=== PATIENT | female | born 1965 | race Caucasian/White ===

== ENCOUNTER 2022-10-20 09:56 | Outpatient (OUT) | payer OTHER, SELFPAY ==
--- NOTE | 2022-10-20 09:58 | MM_ITS ---
Patient: SONI PERLA Exam Date: 10/20/2022 : 1965 Gender:F Ordering : MIKALA OGDEN Admission #: [id number] Family : Order #: [id number] CLICK HERE TO VIEW EXAM RADIOLOGY REPORT PROCEDURE: MM TOMOSYNTHESIS SCREENING BI COMPARISON: MG MAMM SCREEN 3D AMELIA CAD, 09/25/2020. MG MAMM SCREEN 3D AMELIA CAD, 10/15/2021. INDICATIONS: Screening mammogram Z12.31 Calculator Name NCI Breast Cancer Risk Assessment Tool 5 Year Breast Cancer Risk 1.00% Lifetime Breast Cancer Risk 5.60% Personal Breast Cancer No Personal Ovarian Cancer No Treatments None Family Cancers None LOCATION: The [facility] BREAST COMPOSITION: Scattered areas fibroglandular density. FINDINGS: DIAGNOSTIC CATEGORY 1--NEGATIVE. NO CHANGE FROM COMPARISON ASSESSMENT. Scattered benign-appearing calcifications are present. RIGHT BREAST: No significant suspicious finding. LEFT BREAST: No significant suspicious finding. RECOMMENDATIONS: ROUTINE MAMMOGRAM AND CLINICAL EVALUATION IN 12 MONTHS. PLEASE NOTE: A NORMAL MAMMOGRAM DOES NOT EXCLUDE THE POSSIBILITY OF BREAST CANCER. A CLINICALLY SUSPICIOUS PALPABLE LUMP SHOULD BE BIOPSIED. Dictated by: Delvis Hairston MD on 10/20/2022 at 10:33 Approved by: Delvis Hairston MD on 10/20/2022 at 10:47
== END 2022-10-20 09:57 | disposition home or self-care (01) ==
LOC: MAMMO 09:56
PROVIDERS: PCP Nurse Practitioner Family; Visit Provider Nurse Practitioner Family
DX: Z12.31 Encounter for screening mammogram for malignant neoplasm of breast (principal)
CPT/HCPCS: 77063; 77067

== ENCOUNTER 2023-02-24 19:33 | Emergency (ER) | payer OTHER, SELFPAY ==
[2023-02-24 19:41] VITALS: BP 152/79; PULSE 106; RESP 18; TEMP 36.7; O2SAT 98; BMI 32.4
--- NOTE | 2023-02-24 20:03 | XR_ITS ---
The [address] [address] Patient Name: SONI PERLA MRN: [id number] date: 1965 Sex: F Assigned Patient Location: ER Current Patient Location: ER Accession/Order Number: [id number] Exam Date: 02/24/2023 20:35 Report Date: 02/24/2023 21:24 At the request of: BRAXTON GOODRICH Procedure: XR humerus LT EXAM: XR humerus LT HISTORY: The patient is a 57-year-old female with pain COMPARISON: None. XR/XR humerus LT IMPRESSION: No fractures or cortical discontinuities are seen throughout the length of the left humerus. The AP view demonstrates narrowing of the subacromial space between the acromion and greater tuberosity, suggesting a full-thickness rotator cuff tear. Electronically authenticated by: KADY KIMBALL Date: 02/24/2023 21:24
--- NOTE | 2023-02-24 22:05 | ED.UPPEXIN1 ---
HPI - Extremity Injury (Upper) General Chief Complaint: Extremity Injury, Upper Stated Complaint: Upper Extremity Injury Time Seen by Provider: 02/24/23 22:01 Source: patient Mode of arrival: walk-in Limitations: no limitations History of Present Illness HPI narrative: help move a table a couple of days ago at work and felt a pop of her left arm that was painful. Today noticed blood of the left arm and now presents to be seen . No numbness or weakness. Does have pain with use of the arm. Denies other injuries. Takes ASA but no other blood thinners Related Data Allergies Allergy/AdvReac Type Severity Reaction Status Date / Time No Known Drug Allergies Allergy Verified 02/24/23 19:48 Review of Systems ROS Status of ROS 10 or more systems reviewed and unremarkable except as noted in history and below [facility] Social History Smoking status: Never smoker Exam Constitutional Vital Signs, click to edit/add: Last Vital Signs Temp 98.0 F 02/24/23 19:41 Pulse 106 H 02/24/23 19:41 Resp 18 02/24/23 19:41 BP 152/79 H 02/24/23 19:41 Pulse Ox 98 02/24/23 19:41 O2 Del Method Room Air 02/24/23 19:41 Common normals: no apparent distress, average body habitus, oriented x3 and no limitations HENMT Common normals: normocephalic and head/scalp atraumatic Eye Common normals: PERRL, EOMs intact bilaterally and conjunctivae normal Respiratory Common normals: normal respiratory effort, no retractions, no use of accessory muscles and clear to auscultation bilaterally Cardio Common normals: regular rate, regular rhythm, S1 normal heart sound and S2 normal heart sound Extremity Other: hematoma left mid biceps. Tenderness of superior aspect of the biceps muscle. Neuro Common normals: oriented x3, CN's II-XII intact bilaterally, moves all extremities, no focal motor deficits and no sensory deficits noted Psych Appearance: grossly normal Course Vital Signs Vital signs: Vital Signs Temperature 98.0 F 02/24/23 19:41 Pulse Rate 106 H 02/24/23 19:41 Respiratory Rate 18 02/24/23 19:41 Blood Pressure 152/79 H 02/24/23 19:41 Pulse Oximetry 98 02/24/23 19:41 Oxygen Delivery Method Room Air 02/24/23 19:41 Temperature 98.0 F 02/24/23 19:41 Pulse Rate 106 H 02/24/23 19:41 Respiratory Rate 18 02/24/23 19:41 Blood Pressure 152/79 H 02/24/23 19:41 Pulse Oximetry 98 02/24/23 19:41 Oxygen Delivery Method Room Air 02/24/23 19:41 MDM - Extremity Injury (Upper) MDM Narrative Medical decision making narrative: patient presents clinically with tear of her superior left biceps tendon. Injury occurred yesterday. Discussed with section leader and machine setter orthopedics who states he can see the patient tomorrow in the office Discharge Plan Discharge Chief Complaint: Extremity Injury, Upper Clinical Impression: Biceps muscle tear Patient Disposition: Home, Self-Care Instructions: Tendon Rupture (ED) Additional Instructions: follow up with Dr Pinto tomorrow between 8am-2pm Stand Alone Forms: Portal Instructions Referrals: MIKALA OGDEN [Primary Care Provider] - 1 week
--- NOTE | 2023-02-24 22:31 | PC.NURSE ---
was moving a table at work and felt and heard a pop. There was pain lasting only a few seconds at that time. Yesterday, she noticed bruising at the bicep, and felt pain that has been increasing since that time. Today, the pain is worse and there is increasing weakness in the left arm also.
== END 2023-02-24 22:47 | disposition home or self-care (01) ==
PROVIDERS: Emergency Provider Internal Medicine; PCP Nurse Practitioner Family
DX: S46.212A Strain of muscle, fascia and tendon of other parts of biceps, left arm, initial encounter (principal); X50.9XXA Other and unspecified overexertion or strenuous movements or postures, initial encounter; Z79.82 Long term (current) use of aspirin
CPT/HCPCS: 73060; 99283

== ENCOUNTER 2023-02-25 12:49 | Outpatient (OUT) | payer OTHER, SELFPAY ==
--- NOTE | 2023-02-25 12:57 | MR_ITS ---
The [place] [id number] Patient Name: SONI PERLA MRN: [id number] date: 1965 Sex: F Assigned Patient Location: MRI Current Patient Location: MRI Accession/Order Number: [id number] Exam Date: 02/25/2023 13:00 Report Date: 02/25/2023 14:59 At the request of: NANO SAAVEDRA Procedure: MR elbow LT wo con MR elbow LT wo con, 02/25/2023 1:00 PM EST INDICATION: Left Elbow Pain M25.522 COMPARISON: X-ray of the left humerus dated 02/25/2020 TECHNIQUE: Multiplanar and multisequential MR images of the left elbow were obtained without contrast. FINDINGS: Bone: No acute fracture or dislocation is noted. No osseus lesion is noted. Muscle and tendon: There is low-grade partial tear versus tendinosis of the biceps tendon. There is no abnormality of the biceps retinaculum. Mild tendinosis at origin of the common extensor tendons. No signal abnormality in the remainder of muscles and tendons is noted. Ligaments: The visualized portions of collateral ligaments are unremarkable. Nerves: There is no abnormality of the visualized portion of the ulnar, radial and median nerves. There is trace intra articular joint effusion. Mild subcutaneous edema in the lower aspect of the left arm is noted. MR/MR elbow LT wo con IMPRESSION: Low-grade partial tear versus tendinosis at the insertion of the biceps tendon. Mild tendinosis of common extensor tendon. Otherwise, no significant abnormality is noted. Electronically authenticated by: KENY DE LA ROSA Date: 02/25/2023 14:59
== END 2023-02-25 12:50 | disposition home or self-care (01) ==
LOC: MRI 12:50
PROVIDERS: PCP Nurse Practitioner Family; Visit Provider Nurse Practitioner
DX: M25.522 Pain in left elbow (principal); S46.212A Strain of muscle, fascia and tendon of other parts of biceps, left arm, initial encounter
CPT/HCPCS: 73221

== ENCOUNTER 2023-10-26 09:56 | Outpatient (OUT) | payer OTHER, SELFPAY ==
--- NOTE | 2023-10-26 09:58 | MM_ITS ---
Patient Name: SONI PERLA MR#: [id number] : 1965 Exam Date: 10/26/2023 Ordering Doctor: MIKALA OGDEN RADIOLOGY REPORT PROCEDURE: MM TOMOSYNTHESIS SCREENING BI COMPARISON: MG MAMM SCREEN 3D AMELIA CAD, 10/15/2021. MM TOMOSYNTHESIS SCREENING BI, 10/20/2022. INDICATIONS: Screening Calculator Name NCI Breast Cancer Risk Assessment Tool 5 Year Breast Cancer Risk 1.00% Lifetime Breast Cancer Risk 5.50% Personal Breast Cancer No Personal Ovarian Cancer No Treatments None Family Cancers None LOCATION: The [facility] BREAST COMPOSITION: There are scattered areas of fibroglandular density. FINDINGS: DIAGNOSTIC CATEGORY 1--NEGATIVE. NO CHANGE FROM COMPARISON ASSESSMENT. Scattered benign-appearing calcifications are present. Scattered benign-appearing lymph nodes are present. RIGHT BREAST: No significant suspicious finding. LEFT BREAST: No significant suspicious finding. RECOMMENDATIONS: ROUTINE MAMMOGRAM AND CLINICAL EVALUATION IN 12 MONTHS. PLEASE NOTE: A NORMAL MAMMOGRAM DOES NOT EXCLUDE THE POSSIBILITY OF BREAST CANCER. A CLINICALLY SUSPICIOUS PALPABLE LUMP SHOULD BE BIOPSIED. Dictated by: Delvis Hairston MD on 10/26/2023 at 11:57 Approved by: Delvis Hairston MD on 10/26/2023 at 11:58
== END 2023-10-26 09:57 | disposition home or self-care (01) ==
LOC: MAMMO 09:56
PROVIDERS: PCP Nurse Practitioner Family; Visit Provider Nurse Practitioner Family
DX: Z12.31 Encounter for screening mammogram for malignant neoplasm of breast (principal)
CPT/HCPCS: 77063; 77067

== ENCOUNTER 2024-10-04 07:14 | Outpatient (OUT) | payer OTHER, SELFPAY ==
--- OUTSIDE RECORDS SUMMARY | 2024-10-04 07:16 | XMS_ITS | Patient Health Record ---
Author Organization [facility] Address [address] [place] [address] Care Team Providers Care Front Desk Team Member Name Role Phone Mitchell Pinto Unavailable [phone] Allergies No Known Allergies Reason For Referral No Information Medications Medication SIG (Take, Route, Frequency, Duration) Notes Start Date End Date Status metFORMIN Unknown aspirin Unknown losartan Unknown pravastatin Unknown pioglitazone Unknown amLODIPine Unknown Social History Tobacco Use: Social History Observation Description Date Details (start date - stop date) Never Smoker NA - NA Smoking History Question Answer Notes Smoking Status NonSmoker Problems Problem Type SNOMED Code ICD Code Onset Dates Problem Status W/U Status Risk Notes Problem 22295365 Left elbow pain (M25.522) Active confirmed Problem 587265715 Strain of muscle, fascia and tendon of other parts of biceps, left arm, initial encounter (S46.212A) Active confirmed Problem 705577360 Rupture of left distal biceps tendon, subsequent encounter (S46.212D) Active confirmed Plan Of Treatment Pending Test Test Name Order Date MRI : Elbow W/O Contrast Left - 51524 Work Slip w/Restrictions: Giovanni clay was seen in my office today and may return to work with the following restrictions: 04/22/2023 Work Slip; Off work 03/25/2023 Insurance Providers Payer Name Payer Address Payer Phone Subscriber Number Group Number Insured Name Patient Relationship to Insured Coverage Start Date Coverage End Date [employer] [address] [address] [place] [address] [id number] PARUL PERLA Spouse - patient is the spouse of the insured Medical (General) History Medical History History ICD Code Diabetes High Blood Pressure Anxiety Surgical History Surgery Date(Month/Year) Ganglion cyst Bunion Knee arthroscopy 01/2012 Rotator cuff 01/2011
--- OUTSIDE RECORDS SUMMARY | 2024-10-04 07:16 | XMS_ITS | Clinical Summary ---
Author Organization [facility] Address [address] [place] [address] Care Team Providers Care Graduate Teaching Associate Name Role Phone Jennifer Man DO Primary Care Provider [phone] Encounters Date Type Department Care Team Description 09/19/2024 Orders Only [facility] Admitting [address] [place] [id number] Jennifer Man DO 09/06/2024 9:08 AM EDT - 09/06/2024 11:59 PM EDT Hospital Encounter [facility] [address] [place] [address] Discharge Disposition: Home or Self Care 09/06/2024 9:06 AM EDT - 09/08/2024 11:59 PM EDT Hospital Encounter [facility] Non-Invasive Cardiology [address] [place] [id number] Edema of lower extremity; Dyspnea on exertion Discharge Disposition: Home or Self Care 08/24/2024 Transcribe Orders [facility] [address] [place] [address] Jennifer Man DO Edema of lower extremity (Primary Dx); Dyspnea on exertion 08/24/2024 Transcribe Orders [facility] [address] [place] [address] Jennifer Man DO from Last 3 Months Social History Tobacco Use Types Packs/Day Years Used Date Smoking Tobacco: Never Assessed Comments Unknown Sex and Gender Information Value Date Recorded Sex Assigned at Not on file Legal Sex Female 8:16 AM EST Gender Identity Not on file Sexual Orientation Not on file Last Filed Vital Signs Vital Sign Reading Time Taken Comments Blood Pressure - - Pulse - - Temperature - - Respiratory Rate - - Oxygen Saturation - - Inhaled Oxygen Concentration - - Weight 85.7 kg (189 lb) 09/06/2024 10:17 AM EDT Height 162.6 cm (5' 4.02 ) 09/06/2024 10:17 AM E DT Body Mass Index 32.43 09/06/2024 10:17 AM EDT Plan of Treatment Upcoming Encounters Date Type Department Care Team (Latest Contact Info) Description 11/29/2024 2:15 PM EDT Initial consult [place] Change Management Consultant - [address] [address] Josemanuel Rutledge MD [address] [address] [facility] ECHO RESULTS Health Maintenance Due Date Last Done Comments Depression Screen 1975 DTaP/Tdap/Td vaccine (1 - Tdap) 12/04/1982 Pap smear 12/04/1984 Cervical cancer screen 12/04/1993 HPV (without or with Pap) 12/04/1993 Diabetes screen 12/04/1998 Breast cancer screen 2003 Colonoscopy 12/04/2008 Colorectal Cancer Screen 12/04/2008 FIT/FOBT: Average risk 12/04/2008 Fecal-DNA (Cologuard): Average risk 12/04/2008 Sigmoidoscopy/CT colonography 12/04/2008 Pneumococcal 50+ years Vaccine (1 of 1 - PCV) 12/04/2013 Shingles vaccine (1 of 2) 12/04/2013 COVID-19 Vaccine (1 - 2023- season) 2023 Flu vaccine (Season Ended) 2024 Lipids 02/28/2029 02/29/2024, 08/0 08/2023, 08/04/2022, Additional history exists Respiratory Syncytial Virus (RSV) or age 60 yrs+ (1 - 1-dose 75+ series) 12/04/2038 HIV screen Completed 02/29/2024 Hepatitis C screen Completed 02/29/2024, 02/29/2024 Hepatitis A vaccine Aged Out No longe r eligible based on patient's age to complete this topic Hepatitis B vaccine Aged Out No longe r eligible based on patient's age to complete this topic Hib vaccine Aged Out No longer eligi ble based on patient's age to complete this topic Meningococcal (ACWY) vaccine Aged Out No longer eligible based on patient's age to complete this topic Meningococcal B vaccine Aged Out No l onger eligible based on patient's age to complete this topic Polio vaccine Aged Out No longer elig ible based on patient's age to complete this topic Procedures Procedure Name Priority Date/Time Associated Diagnosis Comments ECHO (TTE) COMPLETE Routine 09/06/2024 1 0:18 AM EDT Edema of lower extremity Dyspnea on exertion BASIC METABOLIC PANEL Routine 09/06/2024 9:52 AM EDT HIV SCREEN Routine 02/29/2024 10:26 AM EST HEPATITIS C ANTIBODY Routine 02/29/2024 10:26 AM EST LIPID PANEL Routine 02/29/2024 10:26 AM EST from Last 3 Months or Most Recently Relevant to Health Maintenance Results * (ABNORMAL) ECHO (TTE) COMPLETE (09/06/2024 10:18 AM EDT) LV EDV A2C 59 mL [facility] CV CPACS LV EDV A4C 71 mL [facility] CV CPACS LV ESV A2C 22 mL [facility] CV CPACS LV ESV A4C 30 mL [facility] CV CPACS IVSd 1.0(A) 0.6 - 0.9 cm [facility] CV CPACS LVIDd 4.6 3.9 - 5.3 cm [facility] CV CPACS LVIDs 2.8 cm [facility] CV [facility]ACS LVOT Mean Gradient 2 mmHg [facility] CV [facility]ACS LVOT VTI 19.6 cm [facility]ACS LVOT Peak Velocity 0.9 m/s [facility] CV [facility]ACS LVOT Peak Gradient 3 mmHg [facility] CV [facility]ACS LVPWd 0.9 0.6 - 0.9 cm [facility]ACS LV E' Lateral Velocity 17.70 cm/s BS CV CPACS LV Ejection Fraction A2C 63 % BS CV CPACS LV Ejection Fraction A4C 58 % BS CV CPACS EF BP 59 55 - 100 % BS CV CPACS LA Minor Elberta 5.1 cm [facility] CV CPACS LA Major Elberta 5.1 cm BS CV CPACS LA Area 2C 17.9 cm2 BS CV CPACS LA Area 4C 17.2 cm2 BS CV CPACS LA Volume MOD A2C 52 22 - 52 mL BS CV CPA CS LA Volume MOD A4C 46 22 - 52 mL BS CV CPA CS LA Volume BP 49 22 - 52 mL BS CV CPACS AV Cusp Mmode 2.0 cm BS CV CPACS AV Mean Gradient 4 mmHg BS CV CPACS AV VTI 29.9 cm BS CV CPACS AV Mean Velocity 1.0 m/s BS CV CPACS AV Peak Velocity 1.4 m/s BS CV CPACS AV Peak Gradient 8 mmHg BS CV CPACS Aortic Sinus Valsalva 3.2 cm BS CV CPACS MV E Wave Deceleration Time 254.0 ms BS CV CPACS MV A Velocity 0.83 m/s BS CV CPACS MV E Velocity 0.89 m/s BS CV CPACS PV Max Velocity 1.1 m/s BS CV CPACS PV Peak Gradient 5 mmHg BS CV CPACS RV Basal Dimension 2.6 cm BS CV CPACS TAPSE 1.8 >=1.7 cm BS CV CPACS TR Max Velocity 2.41 m/s BS CV CPACS TR Peak Gradient 23 mmHg BS CV CPACS Body Surface Area 1.97 m2 BS CV CPACS Fractional Shortening 2D 39 28 - 44 % BS CV [facility]ACS LV ESV Index A4C 16 mL/m2 BS CV CPACS LV EDV Index A4C 37 mL/m2 BS CV CPACS LV ESV Index A2C 12 mL/m2 BS CV CPACS LV EDV Index A2C 31 mL/m2 BS CV CPACS LVIDd Index 2.41 cm/m2 BS CV CPACS LVIDs Index 1.47 cm/m2 BS CV CPACS LV RWT Ratio 0.39 BS CV CPACS LV Mass 2D 148.1 67 - 162 g BS CV CPACS LV Mass 2D Index 77.5 43 - 95 g/m2 BS CV CPACS MV E/A 1.07 BS CV CPACS E/E' Lateral 5.03 BS CV CPACS LA Volume Index BP 26 16 - 34 ml/m2 BS CV CPACS LA Volume Index MOD A2C 27 16 - 34 ml/m2 BS CV CPACS LA Volume Index MOD A4C 24 16 - 34 ml/m2 BS CV CPACS Aortic Sinus Valsalva Index 1.68 cm/m2 BS CV CPACS AV Velocity Ratio 0.64 BS CV CPACS LVOT:AV VTI Index 0.66 BS CV CPACS Est. RA Pressure 3 mmHg BS CV CPACS RVSP 26 mmHg BS CV CPACS EF Physician 60 % BS CV CPACS Anatomical Region Laterality Modality Echocardiography Narrative 09/06/2024 11:14 AM EDT Left Ventricle: Normal left ventricular systolic function with a visually estimated EF of 55 - 60%. Left ventricle size is normal. Normal wall thickness. Normal wall motion. Normal diastolic function. Right Ventricle: Right ventricle size is normal. Normal systolic function. Tricuspid Valve: Mild regurgitation. Normal RVSP. Aorta: Normal sized aortic root. Pericardium: The pericardium is normal. No pericardial effusion. Image quality is adequate. Left Ventricle Normal left ventricular systolic function with a visually estimated EF of 55 - 60%. Left ventricle size is normal. Normal wall thickness. Normal wall motion. Normal diastolic function. Right Ventricle Right ventricle size is normal. Normal systolic function. Left Atrium Left atrium size is normal. Right Atrium Right atrium size is normal. IVC/SVC IVC diameter is normal or and decreases greater than 50% during inspiration; therefore the estimated right atrial pressure is normal (~3 mmHg). IVC size is normal. Mitral Valve Valve structure is normal. No regurgitation. No stenosis noted. Tricuspid Valve Valve structure is normal. Mild regurgitation. No stenosis noted. Normal RVSP. Aortic Valve Valve structure is normal. No regurgitation. No stenosis. Pulmonic Valve The pulmonic valve visualization is suboptimal but appears to be functioning normally. Trace regurgitation. No stenosis noted. Ascending Aorta Normal sized aortic root. Pericardium The pericardium is normal. No pericardial effusion. Study Details Image quality: adequate. No contrast was given. us Jennifer Dewilde DO CV ECHO ORDERABLES Final Resu lt * (ABNORMAL) Basic Metabolic Panel (09/06/2024 9:52 AM EDT) Sodium 136 136 - 145 mmol/L 09/06/2024 9:52 AM [facility] Potassium 4.1 3.7 - 5.3 mmol/L 09/06/2024 9:52 AM [facility] Chloride 98 98 - 107 mmol/L 09/06/2024 9:52 AM [facility] CO2 28 20 - 31 mmol/L 09/06/2024 9:52 AM [facility] Anion Gap 10 9 - 16 mmol/L 09/06/2024 9:52 AM [facility] Glucose 102(H) 74 - 99 mg/dL 09/06/2024 9:52 AM [facility] BUN 13 8 - 23 mg/dL 09/06/2024 9:52 AM [facility] Creatinine 0.6 0.50 - 0.90 mg/dL 09/06/2024 9:52 AM [facility] Est, Glom Filt Rate >90 >60 mL/min/1.7 3m2 09/06/2024 9:52 AM [facility] Comment: These results are not intended for use in patients <18 years of age. eGFR results are calculated without a race factor using the 2020 CKD-EPI equation. Careful clinical correlation is recommended, particularly when comparing to results calculated using previous equations. The CKD-EPI equation is less accurate in patients with extremes of muscle mass, extra-renal metabolism of creatine, excessive creatine ingestion, or following therapy that affects renal tubular secretion. BUN/Creatinine Ratio 22(H) 9 - 20 09/06/2024 9:52 AM [facility] Calcium 9.4 8.6 - 10.4 mg/dL 09/06/2024 9:52 AM [facility] 09/06/2024 9:52 AM EDT 09/06/2024 9:53 AM EDT us Unknown Provider Result CHEMISTRY ORDERABLES Fin al Result Performing Organization Address [facility]/ZIP Co de Phone Number [facility] [address] [place] [address], [facility] [phone] * Hepatitis C Antibody (02/29/2024 10:26 AM EST) Hepatitis C Ab NONREACTIVE NONREACTIVE 02/29/20 10:26 AM EST [facility] Comment: The hepatitis C procedure used in our laboratory is a Chemiluminescent test specific for three recombinant HCV antigens. A negative anti-HCV result indicates that the antibodies to hepatitis C virus are not present at this time. Individuals with reactive anti-HCV should be considered infected and infectious until proven otherwise. Confirmation of all equivocal or reactive results is recommended by ordering HCV RNA by PCR. 02/29/2024 10:2 6 AM EST 02/29/2024 10:27 AM EST us Unknown Provider Result IMMUNOLOGY ORDERABLES Fi nal Result Performing Organization Address [facility] Co de Phone Number [facility] [address] [place] [address], [facility] [phone] [facility] [address] [place] [address], [facility] [phone] * HIV Screen (02/29/2024 10:26 AM EST) HIV Ag/Ab NONREACTIVE NONREACTIVE 02/29/2024 10:26 AM EST [facility] Comment: No laboratory evidence of HIV infection. If acute HIV infection is suspected, consider testing for HIV-1 RNA. 02/29/2024 10:2 6 AM EST 02/29/2024 10:27 AM EST us Unknown Provider Result IMMUNOLOGY ORDERABLES Fi nal Result Performing Organization Address [facility] Co de Phone Number [facility] [address] [place] [address], [facility] [phone] [facility] [address] [place], [place] [id number] [phone] * Lipid Panel (02/29/2024 10:26 AM EST) Cholesterol, Total 134 0 - 199 mg/dL 02/29/2024 10:26 AM [email or web address] Comment: Cholesterol Guidelines: <200 Desirable 200-240 Borderline >240 Undesirable HDL 44 >40 mg/dL 02/29/2024 10:26 AM EST [facility] Comment: HDL Guidelines: <40 Undesirable 40-59 Borderline >59 Desirable LDL Cholesterol 76 0 - 100 mg/dL 02/29/2024 10:26 AM EST [facility] Comment: LDL Guidelines: <100 Desirable 100-129 Near to/above Desirable 130-159 Borderline >159 Undesirable Direct (measured) LDL and calculated LDL are not interchangeable tests. Chol/HDL Ratio 3.0 02/29/2024 10:26 AM [email or web address] Triglycerides 72 <150 mg/dL 02/29/2024 10:26 AM [email or web address] Comment: Triglyceride Guidelines: <150 Desirable 150-199 Borderline 200-499 High >499 Very high Based on AHA Guidelines for fasting triglyceride, January 2012. VLDL 14 1 - 30 mg/dL 02/29/2024 10:26 AM [email or web address] 02/29/2024 10:2 6 AM EST 02/29/2024 10:27 AM EST us Unknown Provider Result CHEMISTRY ORDERABLES Fin al Result [facility] [address] [place] [address], [facility] [phone] [facility] [address] [place], [place] [address] [phone] from Last 3 Months or Most Recently Relevant to Health Maintenance Insurance [employer] [address] [address] Care Teams Graduate Teaching Associate Relationship Specialty Start Date End Date Jennifer Man DO [address] [place] [address] PCP - General Family Medicine 09/05/24
--- OUTSIDE RECORDS SUMMARY | 2024-10-04 07:16 | XMS_ITS | Encounter Summary ---
[facility] Address [address] [place] [address] Care Team Providers Care Paint Maker Name Role Phone Jennifer Man DO Primary Care Provider [phone] Encounter Details Date Type Department Care Team (Late st Contact Info) Description 08/24/2024 Transcribe Orders [facility] Pre Access [address] [place], [place] [phone] Jennifer Man DO [address] [place] [address] Social History Tobacco Use Types Packs/Day Years Used Date Smoking Tobacco: Never Assessed Comments Unknown Sex and Gender Information Value Date Recorded Sex Assigned at Not on file Legal Sex Female 8:16 AM EST Gender Identity Not on file Sexual Orientation Not on file documented as of this encounter Plan of Treatment Upcoming Encounters Date Type Department Care Team (Latest Contact Info) Description 11/29/2024 2:15 PM EDT Initial consult [place] [facility] - [address] [address] [place] [address] [place] [address] [id number] [facility] ECHO RESULTS documented as of this encounter Visit Diagnoses Not on filedocumented in this encounter Care Teams Paint Maker Relationship Specialty Start Date End Date Jennifer Man DO [address] [place] [address] PCP - General Family Medicine 09/05/24 documented as of this encounter
--- OUTSIDE RECORDS SUMMARY | 2024-10-04 07:17 | XMS_ITS | CCD ---
Author Organization [facility] Care Team Providers Care Tip Scourer Name Role Phone Fabiola Kaur Primary Care Provider FABIOLA KAUR Admitting Unavailable FABIOLA KAUR Attending Unavailable SONY, DR LIBBY Funez Consulting Unavailable FABIOLA KAUR Primary Care Unavailable FABIOLA KAUR Consulting Unavailable FABIOLA KAUR Admitting Unavailable FABIOLA KAUR Attending Unavailable WESTDR LIBBY V Consulting Unavailable FABIOLA KAUR Primary Care Unavailable FABIOLA KAUR Consulting Unavailable Betsy Kaurnifer Unavailable Natasha PAN CLEANER - VALIDATION ANALYST, Fabiola Primary Care Provider Natasha PAN CLEANER - VALIDATION ANALYST, Fabiola Primary Care Provider Natasha PAN CLEANER - VALIDATION ANALYST, Fabiola Primary Care Provider DEWIELODIAE, EZIO Referring Unavailable FABIOLA KAUR Primary Care Unavailable FELECIA KAURFER Referring Unavailable FABIOLA KAUR Primary Care Unavailable DEWILDE, EZIO Referring Unavailable DEWILDE, EZIO Primary Care Unavailable DEWILDE, EZIO Referring Unavailable DEWILDE, EZIO Primary Care Unavailable Dewilde DO, Ezio Primary Care Provider Medications Current Medications Medication Drug Class(es) Dates Sig (Normalized) Sig (Original) amLODIPine 2.5 mg oral tablet (16 sources) Dihydropyridine Calcium Channel Galdino Start: 08-25-2023 End: 02-22-2024 take 1 tablet by mouth once daily Amlodipine 2.5 mg tablet Active 0 .ROUTE .COMPLEX 90 February 22, 2024 8:32am TAKE 1 TABLET BY MOUTH EVERY DAY Start: 08-25-2023 take 1 tablet by lety th once daily Amlodipine Active 0 .ROUTE .COMPLEX August 25, 2023 7:44am TAKE 1 TABLET BY MOUTH EVERY DAY Start: 06-15-2023 End: 08-25-2023 take 1 tablet by mouth once daily Amlodipine 2.5 mg tablet Discontinued 2.5 MG PO Daily June 15, 2023 9:09am August 25, 2023 6:44am Start: 06-05-2023 End: 06-15-2023 take 1 tablet by mouth once daily Amlodipine 2.5 mg tablet Discontinued 0 .ROUTE .COMPLEX June 05, 2023 7:03am June 15, 2023 9:09am TAKE 1 TABLET BY MOUTH EVERY DAY Start: 06-05-2023 End: 06-15-2023 take 1 tablet by mouth once daily Amlodipine Discontinued 0 .ROUTE .COMPLEX June 05, 2023 8:03am June 15, 2023 10:09am TAKE 1 TABLET BY MOUTH EVERY DAY take 1 tablet by lety th once daily amLODIPine Besylate 2.5 MG TAKE 1 TABLET BY MOUTH EVERY DAY for 90 Active aspirin 81 mg chewable tablet (11 sources) Platelet Aggregation Inhibitor, Nonsteroidal Anti-inflammatory Drug Start: 11-02-2017 take 1 tablet by mouth once daily Aspirin 81 mg Tablet,Chewable Active 81 MG PO Daily November 01, 2017 11:00pm cholecalciferol 0.05 mg oral capsule (5 sources) Vitamin D Start: 12-22-2023 take 1 capsule by mouth once daily Cholecalciferol (Vitamin D3) 50 mcg (2,000 unit) capsule Active 0 .ROUTE .COMPLEX December 22, 2023 1:27pm TAKE 1 CAPSULE BY MOUTH DAILY Start: 11-17-2023 End: 12-22-2023 take 1 capsule by mouth once daily Cholecalciferol (Vitamin D3) 50 mcg (2,000 unit) capsule Discontinued 50 MCG PO Daily November 16, 2023 11:00pm December 22, 2023 1:28pm Start: 08-07-2022 Vitamin D3 125 MCG (5000 UT) as directed Orally Once a day for 30 days August, Active ferrous sulfate 324 mg delayed release oral tablet (2 sources) Start: 12-22-2023 take 1 tablet by mouth once daily Ferrous Sulfate 324 mg (65 mg iron) tablet,delayed release (DR/EC) Active 0 .ROUTE .COMPLEX December 22, 2023 1:27pm TAKE 1 TABLET BY MOUTH DAILY Start: 11-17-2023 End: 12-22-2023 take 1 tablet by mouth once daily Ferrous Sulfate 324 mg (65 mg iron) tablet,delayed release (DR/EC) Discontinued 324 MG PO Daily November 16, 2023 11:00pm December 22, 2023 1:28pm hydroCHLOROthiazide 12.5 mg / losartan potassium 50 mg oral tablet (20 sources) Thiazide Diuretic, Angiotensin 2 Receptor Galdino Start: 06-15-2023 End: 02-23-2024 take 1 tablet by mouth once daily Losartan-Hydrochlorothiazide 50-12.5 mg tablet Active 1 TAB PO Daily 90 February 23, 2024 9:28am Start: 06-08-2023 End: 06-15-2023 take 1 tablet by mouth once daily Losartan-Hydrochlorothiazide 50-12.5 mg tablet Discontinued 0 .ROUTE .COMPLEX June 08, 2023 7:15am June 15, 2023 9:09am TAKE 1 TABLET BY MOUTH EVERY DAY Start: 06-08-2023 End: 06-08-2023 take 1 tablet by mouth once daily Losartan-Hydrochlorothiazide 50-12.5 mg tablet Discontinued 1 TAB PO Daily 90 June 08, 2023 7:03am June 08, 2023 7:15am FreeTextSig: TAKE 1 TABLET BY MOUTH EVERY DAY; Note: Source Status: Start; Refills: 0; Qty: 90 Tablet; Provider: Natasha Hicks ( ) Start: 11-01-2017 End: 06-05-2023 take 1 tablet by mouth once daily Losartan-Hydrochlorothiazide 100-12.5 mg tablet Discontinued 1 TAB PO Daily October 31, 2017 11:00pm June 05, 2023 7:03am take 1 tablet by lety th once daily Losartan Potassium-HCTZ 50-12.5 MG TAKE 1 TABLET BY MOUTH EVERY DAY for 90 Active metFORMIN hydrochloride 1000 mg oral tablet (17 sources) Biguanide Start: 07-28-2023 End: 01-21-2024 take 1 tablet by mouth twice daily at mealtime Metformin 1,000 mg tablet Active 0 .ROUTE .COMPLEX 180 January 21, 2024 7:34am TAKE 1 TABLET BY MOUTH TWICE DAILY WITH MEALS Start: 07-28-2023 take 1 tablet by lety th twice daily at mealtime Metformin Active 0 .ROUTE .COMPLEX 180 July 28, 2023 7:22am TAKE 1 TABLET BY MOUTH TWICE DAILY WITH MEALS Start: 06-15-2023 End: 07-28-2023 take 1 tablet by mouth twice daily at mealtime Metformin 1,000 mg tablet Discontinued 1000 MG PO Twice daily with meals June 14, 2023 11:00pm July 28, 2023 6:22am FreeTextSig: TAKE 1 TABLET BY MOUTH TWICE DAILY WITH MEALS; Note: Source Status: Start; Refills: 0; Qty: 180 Tablet; Provider: Natasha Hicks ( ) Start: 11-01-2017 End: 06-15-2023 take 1 tablet by mouth twice daily Metformin 500 mg tablet Discontinued 500 MG PO Twice daily October 31, 2017 11:00pm June 15, 2023 8:57am take 1 tablet by lety th twice daily at mealtime metFORMIN HCl 1000 MG TAKE 1 TABLET BY MOUTH TWICE DAILY WITH MEALS for 90 Active pioglitazone 15 mg oral tablet (20 sources) Peroxisome Proliferator Receptor alpha Agonist, Peroxisome Proliferator Receptor gamma Agonist, Thiazolidinedione Start: 01-04-2024 take 1 tablet by mouth once daily Pioglitazone 15 mg tablet Active 15 MG PO Daily 90 January 04, 2024 9:01am Start: 12-22-2023 End: 01-04-2024 take 1 tablet by mouth once daily Pioglitazone 15 mg tablet Discontinued 0 .ROUTE .COMPLEX 90 December 22, 2023 1:27pm January 04, 2024 9:02am TAKE 1 TABLET BY MOUTH EVERY DAY Start: 06-15-2023 End: 12-22-2023 take 1 tablet by mouth once daily Pioglitazone 15 mg tablet Discontinued 15 MG PO Daily June 15, 2023 9:09am December 22, 2023 1:28pm Start: 05-29-2023 End: 06-15-2023 take 1 tablet by mouth once daily Pioglitazone 15 mg tablet Discontinued 0 .ROUTE .COMPLEX 90 May 29, 2023 12:21pm June 15, 2023 9:09am TAKE 1 TABLET BY MOUTH EVERY DAY Start: 05-28-2023 End: 05-29-2023 take 1 tablet by mouth once daily Pioglitazone 15 mg tablet Discontinued 15 MG PO Daily May 28, 2023 10:18am May 29, 2023 12:21pm FreeTextSig: TAKE 1 TABLET BY MOUTH EVERY DAY; Note: Source Status: Start; Refills: 0; Qty: 90 Tablet; Provider: Natasha Hicks ( ) take 1 tablet by lety th once daily Pioglitazone HCl 15 MG TAKE 1 TABLET BY MOUTH EVERY DAY for 90 Active pravastatin sodium 20 mg oral tablet (15 sources) HMG-CoA Reductase Inhibitor Start: 07-28-2023 End: 01-21-2024 take 1 tablet by mouth once daily at bedtime Pravastatin 20 mg tablet Active 0 .ROUTE .COMPLEX January 21, 2024 7:34am TAKE 1 TABLET BY MOUTH EVERY NIGHT AT BEDTIME Start: 11-01-2017 End: 07-28-2023 take 1 tablet by mouth at bedtime Pravastatin 20 mg tablet Discontinued 20 MG PO Bedtime October 31, 2017 11:00pm July 28, 2023 6:22am ReliOn Blood Pressure Monito r - (9 sources) ReliOn Blood Pre ssure Monitor - as directed Active Problems Problem Classification Problem Date Documented Date Episodic/Chronic Deficiency and other anemia (1 source) Iron deficiency anemia; Translations: [Iron deficiency anemia, unspecified] 02-23-2024 Episodic Deficiency and other anemia (1 source) Iron deficiency anemia, unspecified; Translations: [Iron deficiency anemia, unspecified] 02-23-2024 Episodic Diabetes mellitus without complication (20 sources) Type 2 diabetes mellitus without complication; Translations: [Type 2 diabetes mellitus without complications] Onset: 01-14-2021 Resolved: 10-08-2021 Chronic Disorders of lipid metabolism (20 sources) Pure hypercholesterolemia; Translations: [Pure hypercholesterolemia] Onset: 01-14-2021 Resolved: 10-08-2021 Chronic Essential hypertension (20 sources) Essential hypertension; Translations: [Essential (primary) hypertension] Onset: 01-14-2021 Resolved: 10-08-2021 Chronic Fluid and electrolyte disorders (2 sources) Hypo-osmolality and hyponatremia; Translations: [Hypo-osmolality and hyponatremia] Onset: 09-06-2024 Episodic Headache; including migraine (9 sources) Episodic tension-type headache; Translations: [Episodic tension-type headache, not intractable] Chronic Immunizations and screening for infectious disease (4 sources) Patient encounter status; Translations: [Encounter for screening for human immunodeficiency virus [HIV]] 02-23-2024 Episodic Nutritional deficiencies (10 sources) Vitamin D deficiency; Translations: [Vitamin D deficiency, unspecified] Onset: 11-09-2023 Chronic Other lower respiratory disease (1 source) Other forms of dyspnea; Translations: [Other forms of dyspnea] Onset: 09-06-2024 Episodic Other lower respiratory disease (2 sources) Dyspnea on exertion; Translations: [Other forms of dyspnea] 09-06-2024 Episodic Other nutritional; endocrine; and metabolic disorders (17 sources) Body mass index 30+ - obesity; Translations: [Body mass index (BMI) 32.0-32.9, adult] Chronic Other nutritional; endocrine; and metabolic disorders (3 sources) Body mass index (BMI) 32.0-32.9, adult; Translations: [BMI 32.0-32.9,adult Z68.32] Onset: 01-14-2021 Resolved: 01-14-2021 Chronic Other nutritional; endocrine; and metabolic disorders (2 sources) Body mass index (BMI) 31.0-31.9, adult Onset: 06-04-2021 Resolved: 10-08-2021 Chronic Other nutritional; endocrine; and metabolic disorders (1 source) Body mass index (BMI) 33.0-33.9, adult Chronic Other nutritional; endocrine; and metabolic disorders (2 sources) Obesity; Translations: [Obesity, unspecified] 06-15-2023 Chronic Other nutritional; endocrine; and metabolic disorders (1 source) Obesity, unspecified; Translations: [Obesity, unspecified] 11-02-2023 Chronic Other screening for suspected conditions (not mental disorders or infectious disease) (8 sources) Encounter for screening mammogram for malignant neoplasm of breast; Translations: [Encounter for screening for osteoporosis] Onset: 10-08-2021 Resolved: 10-08-2021 Episodic Residual codes; unclassified (5 sources) Asymptomatic menopausal state; Translations: [ASYMPTOMATIC MENOPAUSAL STATE] Onset: 03-17-2022 Episodic Residual codes; unclassified (1 source) Localized edema; Translations: [Localized edema] Onset: 09-06-2024 Episodic Residual codes; unclassified (2 sources) Edema of lower extremity; Translations: [Localized edema] 09-06-2024 Episodic Results Test Name Value Interpretation Reference Range [facility] Basic Metabolic Panelon 06-0 Anion gap [Moles/Vol] 10 mmol/L 9 - 16 mmol/L [facility] Calcium [Mass/Vol] 9.4 mg/dL 8.6 - 10. 4 mg/dL [facility] Chloride [Moles/Vol] 98 mmol/L 98 - 107 mmol/L [facility] CO2 [Moles/Vol] 28 mmol/L 20 - 31 mmol/L [facility] Creatinine [Mass/Vol] 0.6 mg/dL 0.50 - 0.90 mg/dL [facility] Est, Glom Filt Rate - PINF [facility] Comment on above: These results are not intended for use [...] following therapy that affects renal tubular secretion. Glucose [Mass/Vol] 102 mg/dL High 74 - 99 mg/dL [facility] Interpretation and review of laboratory results Abnormal [facility] Potassium [Moles/Vol] 4.1 mmol/L 3.7 - 5.3 mmol/L [facility] Sodium [Moles/Vol] 136 mmol/L 136 - 145 mmol/L [facility] Urea nitrogen [Mass/Vol] 13 mg/dL 8 - 23 mg/dL [facility] Urea nitrogen/Creatinine [Mass ratio] 22 mg/mg High 9 - 20 [facility] Basic Metabolic Profon 09-06 Anion gap [Moles/Vol] 10 mmol/L Normal 9-16 [facility] Comment on above: Performed By: #### F EBC, VD25, URNMAB, B12FOL, LIPR #### [employer] [facility] [place] [address] Utilization Review Coordinator: Hraley Borjas MD #### CDP, TSH, CP #### [facility] [address] [place], [place] [id number] Utilization Review Coordinator: Libby Bah MD BUN/CRE Ratio 22 High 9-20 [facility] Comment on above: Performed By: #### F EBC, VD25, URNMAB, B12FOL, LIPR #### [address] [address] Utilization Review Coordinator: Harley Borjas MD #### CDP, TSH, CP #### [facility] [address] [place], [place] [id number] Utilization Review Coordinator: Libby Bah MD Calcium [Mass/Vol] 9.4 mg/dL Normal 8.6-10.4 [facility] Comment on above: Performed By: #### F EBC, VD25, URNMAB, B12FOL, LIPR #### [address] [address] Utilization Review Coordinator: Harley Borjas MD #### CDP, TSH, CP #### [facility] [address] [place], [place] [id number] Utilization Review Coordinator: Libby Bah MD Chloride [Moles/Vol] 98 mmol/L Normal 98-107 [facility] Comment on above: Performed By: #### F EBC, VD25, URNMAB, B12FOL, LIPR #### [address] [address] Utilization Review Coordinator: Harley Borjas MD #### CDP, TSH, CP #### [facility] [address] [place], [place] [id number] Utilization Review Coordinator: Libby Bah MD CO2 [Moles/Vol] 28 mmol/L Normal 20-31 [facility] Comment on above: Performed By: #### F EBC, VD25, URNMAB, B12FOL, LIPR #### [address] [address] Utilization Review Coordinator: Harley Borjas MD #### SCOOTER TSH, CP #### [facility] [address] [place] [address] Utilization Review Coordinator: Libby Bah MD Creatinine [Mass/Vol] 0.6 mg/dL Normal 0.50-0.90 [facility] Comment on above: Performed By: #### F EBC, VD25, URNMAB, B12FOL, LIPR #### [facility] [address] [place], [place] [id number] Utilization Review Coordinator: Harley Borjas MD #### CARSON HELMS, CP #### [facility] [address] [place] [address] [place] [address] Utilization Review Coordinator: Libby Bah MD GFR/1.73 sq M.predicted among non-blacks MDRD (S/P/Bld) [Vol rate/Area] mL/min/{1.73_m2} Normal >60 [facility] Comment on above: Result Comment: These results are not intended for [...] following therapy that affects renal tubular secretion. Performed By: #### F EBC, VD25, URNMAB, B12FOL, LIPR #### [facility] [employer] [address] [place], [place] [id number] Utilization Review Coordinator: Harley Borjas MD #### SCOOTER, TSH, CP #### [facility] [address] [place] [address] [place] [address] Utilization Review Coordinator: Libby Bah MD Glucose [Mass/Vol] 102 mg/dL High 74-99 [facility] Comment on above: Performed By: #### F EBC, VD25, URNMAB, B12FOL, LIPR #### [facility] [address] [place] [address] Utilization Review Coordinator: Harley Borjas MD #### CDP, TSH, CP #### [address] [place], [place] [id number] Utilization Review Coordinator: Libby Bah MD Potassium [Moles/Vol] 4.1 mmol/L Normal 3.7-5.3 [facility] Comment on above: Performed By: #### F EBC, VD25, URNMAB, B12FOL, LIPR #### [address] [address] Utilization Review Coordinator: Harley Borjas MD #### CDP, TSH, CP #### [address] [place], [place] [id number] Utilization Review Coordinator: Libby Bah MD Sodium [Moles/Vol] 136 mmol/L Normal 136-145 [facility] Comment on above: Performed By: #### F EBC, VD25, URNMAB, B12FOL, LIPR #### [address] [address] Utilization Review Coordinator: Harley Borjas MD #### CDP, TSH, CP #### [address] [place], [place] [id number] Utilization Review Coordinator: Libby Bah MD Urea nitrogen [Mass/Vol] 13 mg/dL Normal 8-23 [facility] Comment on above: Performed By: #### F EBC, VD25, URNMAB, B12FOL, LIPR #### [address] [address] Utilization Review Coordinator: Harley Borjas MD #### CDP, TSH, CP #### [address] [place], [place] [id number] Utilization Review Coordinator: Libby Bah MD Cardiac echo study Procedure Ordered By: Joao Hinkle on 09-06-2024 Aortic Sinus Valsalva 3.2 cm [facility] Work Phone: Aortic Sinus Valsalva Index 1.68 cm/m2 [employer] Work Phone: AV Cusp Mmode 2 cm [employer] Phone: AV Mean Gradient 4 mmHg [facility] [employer] Work Phone: AV Mean Velocity 1 m/s [facility] [employer] Work Phone: AV Peak Gradient 8 mmHg [facility] [employer] Work Phone: AV Peak Velocity 1.4 m/s [facility] [employer] Work Phone: AV Velocity Ratio 0.64 [facility] [employer] Phone: AV VTI 29.9 cm [employer] Phone: Body surface area Derived from formula 1.97 m2 [facility] Work Phone: E/E' Lateral 5.03 [facility] Work Phone: EF BP 59 % 55 - 100 % [facility] Work Phone: EF Physician 60 % [facility] Work Phone: Est. RA Pressure 3 mmHg Bon [employer] Work Phone: Fractional Shortening 2D 39 % 28 - 44 % [facility] Work Phone: Interpretation and review of laboratory results Abnormal [facility] Work Phone: IVSd 1 cm Abnormal 0.6 - 0.9 cm [facility] Work Phone: LA Area 2C 17.9 cm2 [facility] [employer] [facility] Work Phone: LA Area 4C 17.2 cm2 [facility] Work Phone: LA Major Winfred 5.1 cm [facility] Work Phone: LA Minor Winfred 5.1 cm [employer] Phone: LA Volume BP 49 mL 22 - 52 mL [employer] [facility] Work Phone: LA Volume Index BP 26 ml/m2 16 - 34 ml/m2 [employer] Phone: LA Volume Index MOD A2C 27 ml/m2 16 - 34 ml/m2 [facility] Work Phone: LA Volume Index MOD A4C 24 ml/m2 16 - 34 ml/m2 [facility] Work Phone: LA Volume MOD A2C 52 mL 22 - 52 mL [employer] Phone: LA Volume MOD A4C 46 mL 22 - 52 mL [employer] Phone: LV E' Lateral Velocity 17.7 cm/s [employer] Phone: LV EDV A2C 59 mL [facility] Work Phone: LV EDV A4C 71 mL [employer] Phone: LV EDV Index A2C 31 mL/m2 [employer] Work Phone: LV EDV Index A4C 37 mL/m2 [employer] Phone: LV Ejection Fraction A2C 63 % [facility] Work Phone: LV Ejection Fraction A4C 58 % [facility] Work Phone: LV ESV A2C 22 mL [facility] Work Phone: LV ESV A4C 30 mL [employer] Phone: LV ESV Index A2C 12 mL/m2 [employer] Work Phone: LV ESV Index A4C 16 mL/m2 [employer] Work Phone: LV Mass 2D 148.1 g 67 - 162 g [facility] Work Phone: LV Mass 2D Index 77.5 g/m2 43 - 95 g/m2 [employer] Work Phone: LV RWT Ratio 0.39 [employer] Phone: LVIDd 4.6 cm 3.9 - 5.3 cm [employer] Phone: LVIDd Index 2.41 cm/m2 [employer] Work Phone: LVIDs 2.8 cm [employer] Phone: LVIDs Index 1.47 cm/m2 [employer] Phone: LVOT Mean Gradient 2 mmHg [employer] Phone: LVOT Peak Gradient 3 mmHg [employer] Phone: LVOT Peak Velocity 0.9 m/s [employer] Work Phone: LVOT VTI 19.6 cm [employer] Phone: LVOT:AV VTI Index 0.66 [facility] [employer] [facility] [employer] Phone: LVPWd 0.9 cm 0.6 - 0.9 cm [employer] Phone: MV A Velocity 0.83 m/s [facility] [employer] Phone: MV E Velocity 0.89 m/s [facility] Phone: MV E Wave Deceleration Time 254 ms [employer] Phone: MV E/A 1.07 [employer] Phone: PV Max Velocity 1.1 m/s [facility] [employer] Phone: PV Peak Gradient 5 mmHg [facility] [employer] Phone: RV Basal Dimension 2.6 cm [employer] Phone: RVSP 26 mmHg [employer] Work Phone: TAPSE 1.8 cm 1.7 cm [employer] Work Phone: TR Max Velocity 2.41 m/s [employer] Work Phone: TR Peak Gradient 23 mmHg [employer] Work Phone: [employer] Work Phone: Cardiac echo study Procedure on 09-06-2024 Left Ventricle: Normal left ventricular systolic function [...] Image quality: adequate. No contrast was given. [facility] CV CPACS Radiology Study observation (narrative) [employer] HCV RNA,Quant,PCRon 03-01-20 24 HCV RNA,Quant Not detected Normal [facility] Comment on above: Result Comment: INTERPRETIVE INFORMATION: HCV by Quantitative NAAT, Serum or Plasma Normal Range for this assay is Not Detected . The quantitative range of this assay is 15-30,000,000 IU/mL (1.17-7.48 log IU/mL). Lower limit of quantitation(LLoQ) is 15 IU/mL(1.17 log IU/mL). LLoQ values do not apply to diluted specimens. A result of Not Detected does not rule out the presence of inhibitors in the patient specimen or hepatitis C virus RNA concentrations below the level of detection of the test. Care should be taken when interpreting any single viral load determination. This test should not be used for blood donor screening, associated re-entry protocols, or for screening Human Cell, Tissues and Cellular Tissue-Based Products (HCT/P). Performed By: #### F EBC, VD25, URNMAB, B12FOL, LIPR #### [address] [address] Utilization Review Coordinator: Harley Borjas MD #### CDP, TSH, CP #### [address] [place] [address] Utilization Review Coordinator: Libby Bah MD B12/Folate Panelon 4 Cobalamin (Vitamin B12) [Mass/Vol] 238 pg/mL Normal 232-1245 [facility] Comment on above: Performed By: #### F EBC, VD25, URNMAB, B12FOL, LIPR #### [address] [address] Utilization Review Coordinator: Harley Borjas MD #### CDP, TSH, CP #### [address] [place] [address] Utilization Review Coordinator: Libby Bah MD Folic Acid 9.2 ng/mL Normal 4.8-24.2 [facility] Comment on above: Performed By: #### F EBC, VD25, URNMAB, B12FOL, LIPR #### [address] [address] Utilization Review Coordinator: Harley Borjas MD #### CDP, TSH, CP #### [facility] [address] [place] [address] Utilization Review Coordinator: Libby Bah MD CBC with Auto Differentialon 02-29-2024 Basophils (Bld) [#/Vol] 0.06 10*3/uL [facility] Basophils/100 WBC (Bld) 1 % 0 - 2 % [facility] Eosinophils (Bld) [#/Vol] 0.20 10*3/uL [facility] Eosinophils/100 WBC (Bld) 2 % 1 - 4 % [facility] Erythrocyte distribution width (RBC) [Ratio] 15.2 % High 11.8 - 14.4 % [facility] Hematocrit (Bld) [Volume fraction] 37.7 % 36.3 - 47.1 % [facility] Hemoglobin (Bld) [Mass/Vol] 11.9 g/dL 11.9 - 15.1 g/dL [facility] Immature granulocytes (Bld) [#/Vol] 0.07 10*3/uL [facility] Immature granulocytes/100 WBC (Bld) 1 % High 0 [facility] Interpretation and review of laboratory results Abnormal [facility] Lymphocytes/100 WBC (Bld) 23 % Low 24 - 43 % [facility] Lymphocytes/100 WBC (Bld) 2.42 % [facility] MCH (RBC) [Entitic mass] 24.6 pg Low 25.2 - 33.5 pg [facility] MCHC (RBC) [Mass/Vol] 31.6 g/dL 28.4 - 34.8 g/dL [facility] MCV (RBC) [Entitic vol] 78.1 fL Low 82.6 - 102.9 fL [facility] Monocytes/100 WBC (Bld) 7 % 3 - 12 % [facility] Monocytes/100 WBC (Bld) 0.71 % [facility] Neutrophils/100 WBC (Bld) 66 % High 36 - 65 % [facility] Nucleated RBC/100 WBC (Bld) [Ratio] 0.0 % 0.0 per 100 WBC [facility] Platelet mean volume (Bld) [Entitic vol] 9.1 fL 8.1 - 13.5 fL [facility] Platelets (Bld) [#/Vol] 449 10*3/uL [facility] RBC (Bld) [#/Vol] 4.83 10*6/uL 3.95 - 5.1 1 m/uL [facility] Segmented neutrophils/100 WBC (Bld) 6.98 % [facility] WBC other (Bld) [#/Vol] 10.4 [facility] CBC with Diffon 02-29-2024 Abs. Basophil 0.06 k/uL Normal 0.00-0.20 [facility] Comment on above: Performed By: #### V D25, HIVCMB, URNMAB, FEBC, LIPR, B12FOL, AHCV #### [place] [address] Utilization Review Coordinator: Harley Borjas MD #### CDP, CP #### [address] [place] [id number] Utilization Review Coordinator: Libby Bah MD #### HCVQN #### [place] [address] Utilization Review Coordinator: Harley Borjas MD [address] [place] [address] Utilization Review Coordinator: Libby Bah MD Abs.Imm.Granulocyte 0.07 k/uL Normal 0.00-0.30 [facility] Comment on above: Performed By: #### V D25, HIVCMB, URNMAB, FEBC, LIPR, B12FOL, AHCV #### [place] [address] [place] [address] Utilization Review Coordinator: Harley Borjas MD #### CDP, CP #### [address] [place] [phone] Utilization Review Coordinator: Libby Bah MD #### HCVQN #### [address] [address] Utilization Review Coordinator: Harley Borjas MD [address] [place], [place] [phone] Utilization Review Coordinator: Libby Bah MD Abs.Neutrophil (Seg) 6.98 k/uL Normal 1.50-8.10 [facility] Comment on above: Performed By: #### V D25, HIVCMB, URNMAB, FEBC, LIPR, B12FOL, AHCV #### [address] [address] Utilization Review Coordinator: Harley Borjas MD #### CDP, CP #### [address] [place], [place] [phone] Utilization Review Coordinator: Libby Bah MD #### HCVQN #### [address] [address] Utilization Review Coordinator: Harley Borjas MD [address] [place] [address] Utilization Review Coordinator: Libby Bah MD Basophils/100 WBC (Bld) 1 % Normal 0-2 [facility] Comment on above: Performed By: #### V D25, HIVCMB, URNMAB, FEBC, LIPR, B12FOL, AHCV #### [address] [address] Utilization Review Coordinator: Harley Borjas MD #### CDP, CP #### [address] [place], [place] [phone] Utilization Review Coordinator: Libby Bah MD #### HCVQN #### [address] [address] Utilization Review Coordinator: Harley Borjas MD [address] [place] [phone] Utilization Review Coordinator: Libby Bah MD Eosinophils (Bld) [#/Vol] 0.20 10*3/uL Normal 0.00-0.44 [facility] Comment on above: Performed By: #### V D25, HIVCMB, URNMAB, FEBC, LIPR, B12FOL, AHCV #### [place] [address] [place] [address] Utilization Review Coordinator: Harley Borjas MD #### CDP, CP #### [address] [place] [phone] Utilization Review Coordinator: Libby Bah MD #### HCVQN #### [address] [address] Utilization Review Coordinator: Harley Borjas MD [address] [place] [address] Utilization Review Coordinator: Libby Bah MD Eosinophils/100 WBC (Bld) 2 % Normal 1-4 [facility] Comment on above: Performed By: #### V D25, HIVCMB, URNMAB, FEBC, LIPR, B12FOL, AHCV #### [address] [address] Utilization Review Coordinator: Harley Borjas MD #### CDP, CP #### [address] [place] [phone] Utilization Review Coordinator: Libby Bah MD #### HCVQN #### [address] [address] Utilization Review Coordinator: Harley Borjas MD [address] [place] [address] Utilization Review Coordinator: Libby Bah MD Erythrocyte distribution width (RBC) [Ratio] 15.2 % High 11.8-14.4 [facility] Comment on above: Performed By: #### V D25, HIVCMB, URNMAB, FEBC, LIPR, B12FOL, AHCV #### [address] [address] Utilization Review Coordinator: Harley Borjas MD #### CDP, CP #### [address] [place], [place] [phone] Utilization Review Coordinator: Libby Bah MD #### HCVQN #### [address] [address] Utilization Review Coordinator: Harley Borjas MD [address] [place] [phone] Utilization Review Coordinator: Libby Bah MD Hematocrit (Bld) [Volume fraction] 37.7 % Normal 36.3-47.1 [facility] Comment on above: Performed By: #### V D25, HIVCMB, URNMAB, FEBC, LIPR, B12FOL, AHCV #### [address] [address] Utilization Review Coordinator: Harley Borjas MD #### CDP, CP #### [address] [place] [phone] Utilization Review Coordinator: Libby Bah MD #### HCVQN #### [address] [address] Utilization Review Coordinator: Harley Borjas MD [address] [place] [phone] Utilization Review Coordinator: Libby Bah MD Hemoglobin (Bld) [Mass/Vol] 11.9 g/dL Normal 11.9-15.1 [facility] Comment on above: Performed By: #### V D25, HIVCMB, URNMAB, FEBC, LIPR, B12FOL, AHCV #### [address] [address] Utilization Review Coordinator: Harley Borjas MD #### CDP, CP #### [address] [place] [address] Utilization Review Coordinator: Libby Bah MD #### HCVQN #### [address] [address] Utilization Review Coordinator: Harley Borjas MD [address] [place] [address] Utilization Review Coordinator: Libby Bah MD Immature granulocytes/100 WBC (Bld) 1 % High 0 [facility] Comment on above: Performed By: #### V D25, HIVCMB, URNMAB, FEBC, LIPR, B12FOL, AHCV #### [address] [address] Utilization Review Coordinator: Harley Borjas MD #### CDP, CP #### [address] [place] [phone] Utilization Review Coordinator: Libby Bah MD #### HCVQN #### [address] [address] Utilization Review Coordinator: Harley Borjas MD [address] [place] [address] Utilization Review Coordinator: Libby Bah MD Lymphocytes (Bld) [#/Vol] 2.42 10*3/uL Normal 1.10-3.70 [facility] Comment on above: Performed By: #### V D25, HIVCMB, URNMAB, FEBC, LIPR, B12FOL, AHCV #### [address] [address] Utilization Review Coordinator: Harley Borjas MD #### CDP, CP #### [address] [place] [address] Utilization Review Coordinator: Libby Bah MD #### HCVQN #### [address] [address] Utilization Review Coordinator: Harley Borjas MD [address] [place], [place] [phone] Utilization Review Coordinator: Libby Bah MD Lymphocytes/100 WBC (Bld) 23 % Low 24-43 [facility] Comment on above: Performed By: #### V D25, HIVCMB, URNMAB, FEBC, LIPR, B12FOL, AHCV #### [address] [address] Utilization Review Coordinator: Harley Borjas MD #### CDP, CP #### [address] [place], [place] 6000583 Utilization Review Coordinator: Libby Bah MD #### HCVQN #### [address] [address] Utilization Review Coordinator: Harley Borjas MD [address] [place] [phone] Utilization Review Coordinator: Libby Bah MD MCH (RBC) [Entitic mass] 24.6 pg Low 25.2-33.5 [facility] Comment on above: Performed By: #### V D25, HIVCMB, URNMAB, FEBC, LIPR, B12FOL, AHCV #### [facility] [address] [place] [address] Utilization Review Coordinator: Harley Borjas MD #### CDP, CP #### [address] [place], [place] 0402383 Utilization Review Coordinator: Libby Bah MD #### HCVQN #### [address] [address] Utilization Review Coordinator: Harley Borjas MD [address] [place], [place] [phone] Utilization Review Coordinator: Libby Bah MD MCHC (RBC) [Mass/Vol] 31.6 g/dL Normal 28.4-34.8 [facility] Comment on above: Performed By: #### V D25, HIVCMB, URNMAB, FEBC, LIPR, B12FOL, AHCV #### [address] [address] Utilization Review Coordinator: Harley Borjas MD #### CDP, CP #### [address] [place] [phone] Utilization Review Coordinator: Libby Bah MD #### HCVQN #### [address] [address] Utilization Review Coordinator: Harley Borjas MD [address] [place] [address] Utilization Review Coordinator: Libby Bah MD MCV (RBC) [Entitic vol] 78.1 fL Low 82.6-102.9 [facility] Comment on above: Performed By: #### V D25, HIVCMB, URNMAB, FEBC, LIPR, B12FOL, AHCV #### [address] [address] Utilization Review Coordinator: Harley Borjas MD #### CDP, CP #### [address] [place] [phone] Utilization Review Coordinator: Libby Bah MD #### HCVQN #### [address] [address] Utilization Review Coordinator: Harley Borjas MD [address] [place] [phone] Utilization Review Coordinator: Libby Bah MD Monocytes (Bld) [#/Vol] 0.71 10*3/uL Normal 0.10-1.20 [facility] Comment on above: Performed By: #### V D25, HIVCMB, URNMAB, FEBC, LIPR, B12FOL, AHCV #### [address] [address] Utilization Review Coordinator: Harley Borjas MD #### CDP, CP #### [address] [place] [address] Utilization Review Coordinator: Libby Bah MD #### HCVQN #### [address] [address] Utilization Review Coordinator: Harley Borjas MD [address] [place] [address] Utilization Review Coordinator: Libby Bah MD Monocytes/100 WBC (Bld) 7 % Normal 3-12 [facility] Comment on above: Performed By: #### V D25, HIVCMB, URNMAB, FEBC, LIPR, B12FOL, AHCV #### [address] [address] Utilization Review Coordinator: Harley Borjas MD #### CDP, CP #### [address] [place] [address] Utilization Review Coordinator: Libby Bah MD #### HCVQN #### [address] [address] Utilization Review Coordinator: Harley Borjas MD [address] [place] [address] Utilization Review Coordinator: Libby Bah MD Neutrophil (Seg) 66 % High 36-65 [facility] Comment on above: Performed By: #### V D25, HIVCMB, URNMAB, FEBC, LIPR, B12FOL, AHCV #### [address] [address] Utilization Review Coordinator: Harley Borjas MD #### CDP, CP #### [address] [place] [address] Utilization Review Coordinator: Libby Bah MD #### HCVQN #### [facility] [address] [place] [address] Utilization Review Coordinator: Harley Borjas MD [address] [place] [address] Utilization Review Coordinator: Libby Bah MD NRBC Automated 0.0 per 100 WBC Normal 0.0 [facility] Comment on above: Performed By: #### V D25, HIVCMB, URNMAB, FEBC, LIPR, B12FOL, AHCV #### [address] [address] Utilization Review Coordinator: Harley Borjas MD #### CDP, CP #### [address] [place], [place] 1506083 Utilization Review Coordinator: Libby Bah MD #### HCVQN #### [address] [address] Utilization Review Coordinator: Harley Borjas MD [address] [place] [phone] Utilization Review Coordinator: Libby Bah MD Platelet mean volume (Bld) [Entitic vol] 9.1 fL Normal 8.1-13.5 [facility] Comment on above: Performed By: #### V D25, HIVCMB, URNMAB, FEBC, LIPR, B12FOL, AHCV #### [address] [address] Utilization Review Coordinator: Harley Borjas MD #### CDP, CP #### [address] [place], [place] [phone] Utilization Review Coordinator: Libby Bah MD #### HCVQN #### [address] [address] Utilization Review Coordinator: Harley Borjas MD [address] [place] [address] Utilization Review Coordinator: Libby Bah MD Platelets (Bld) [#/Vol] 449 10*3/uL Normal 138-453 [facility] Comment on above: Performed By: #### V D25, HIVCMB, URNMAB, FEBC, LIPR, B12FOL, AHCV #### [facility] [address] [place] [address] Utilization Review Coordinator: Harley Borjas MD #### CDP, CP #### [address] [place] [address] Utilization Review Coordinator: Libby Bah MD #### HCVQN #### [address] [address] Utilization Review Coordinator: Harley Borjas MD [address] [place] [phone] Utilization Review Coordinator: Libby Bah MD RBC (Bld) [#/Vol] 4.83 10*6/uL Normal 3.95-5.11 [facility] Comment on above: Performed By: #### V D25, HIVCMB, URNMAB, FEBC, LIPR, B12FOL, AHCV #### [facility] [address] [place] [address] Utilization Review Coordinator: Harley Borjas MD #### CDP, CP #### [address] [place] [address] Utilization Review Coordinator: Libby Bah MD #### HCVQN #### [address] [address] Utilization Review Coordinator: Harley Borjas MD [address] [place] [address] Utilization Review Coordinator: Libby Bah MD WBC (Bld) [#/Vol] 10.4 10*3/uL Normal 3.5-11.3 [facility] Comment on above: Performed By: #### V D25, HIVCMB, URNMAB, FEBC, LIPR, B12FOL, AHCV #### [address] [address] Utilization Review Coordinator: Harley Borjas MD #### CDP, CP #### [address] [place], [place] [phone] Utilization Review Coordinator: Libby Bah MD #### HCVQN #### [address] [address] Utilization Review Coordinator: Harley Borjas MD [address] [place], [place] 6697783 Utilization Review Coordinator: Libby Bah MD Comp Metabolic Profon 2023 Albumin [Mass/Vol] 4.5 g/dL Normal 3.5-5.2 [facility] Comment on above: Performed By: #### V D25, HIVCMB, URNMAB, FEBC, LIPR, B12FOL, AHCV #### [address] [address] Utilization Review Coordinator: Harley Borjas MD #### CDP, CP #### [address] [place], [place] [phone] Utilization Review Coordinator: Libby Bah MD #### HCVQN #### [address] [address] Utilization Review Coordinator: Harley Borjas MD [address] [place] [address] Utilization Review Coordinator: Libby Bah MD Albumin/Glob Ratio 1.3 Normal 1.0-2.5 [facility] Comment on above: Performed By: #### V D25, HIVCMB, URNMAB, FEBC, LIPR, B12FOL, AHCV #### [address] [address] Utilization Review Coordinator: Harley Borjas MD #### CDP, CP #### [address] [place] [address] Utilization Review Coordinator: Libby Bah MD #### HCVQN #### [address] [address] Utilization Review Coordinator: Harley Borjas MD [address] [place], [place] 0497183 Utilization Review Coordinator: Libby Bah MD Alkaline Phos 92 U/L Normal 35-104 [facility] Comment on above: Performed By: #### V D25, HIVCMB, URNMAB, FEBC, LIPR, B12FOL, AHCV #### [address] [address] Utilization Review Coordinator: Harley Borjas MD #### CDP, CP #### [address] [place] [address] Utilization Review Coordinator: Libby Bah MD #### HCVQN #### [address] [address] Utilization Review Coordinator: Harley Borjas MD [address] [place] [address] Utilization Review Coordinator: Libby Bah MD ALT [Catalytic activity/Vol] 22 U/L Normal 10-35 [facility] Comment on above: Performed By: #### V D25, HIVCMB, URNMAB, FEBC, LIPR, B12FOL, AHCV #### [facility] [address] [place] [address] Utilization Review Coordinator: Harley Borjas MD #### CDP, CP #### [address] [place] [address] Utilization Review Coordinator: Libby aBh MD #### HCVQN #### [address] [place] [address] Utilization Review Coordinator: Harley Borjas MD [address] [place], [place] 2256983 Utilization Review Coordinator: Libby Bah MD Anion gap [Moles/Vol] 12 mmol/L Normal 9-16 [facility] Comment on above: Performed By: #### V D25, HIVCMB, URNMAB, FEBC, LIPR, B12FOL, AHCV #### [facility] [address] [place] [address] Utilization Review Coordinator: Harley Borjas MD #### CDP, CP #### [address] [place], [place] [id number] Utilization Review Coordinator: Libby Bah MD #### HCVQN #### [address] [address] Utilization Review Coordinator: Harley Borjas MD [address] [place] [phone] Utilization Review Coordinator: Libby Bah MD AST [Catalytic activity/Vol] 20 U/L Normal 10-35 [facility] Comment on above: Performed By: #### V D25, HIVCMB, URNMAB, FEBC, LIPR, B12FOL, AHCV #### [facility] [address] [place] [address] Utilization Review Coordinator: Harley Borjas MD #### CDP, CP #### [address] [place], [place] 6798383 Utilization Review Coordinator: Libby Bah MD #### HCVQN #### [address] [address] Utilization Review Coordinator: Harley Borjas MD [address] [place], [place] 5731283 Utilization Review Coordinator: Libby Bah MD Bilirubin [Mass/Vol] 0.4 mg/dL Normal 0.00-1.20 [facility] Comment on above: Performed By: #### V D25, HIVCMB, URNMAB, FEBC, LIPR, B12FOL, AHCV #### [address] [address] Utilization Review Coordinator: Harley Borjas MD #### CDP, CP #### [address] [place] [address] Utilization Review Coordinator: Libby Bah MD #### HCVQN #### [address] [address] Utilization Review Coordinator: Harley Borjas MD [address] [place] [address] Utilization Review Coordinator: Libby Bah MD BUN/CRE Ratio 23 High 9-20 [facility] Comment on above: Performed By: #### V D25, HIVCMB, URNMAB, FEBC, LIPR, B12FOL, AHCV #### [address] [address] Utilization Review Coordinator: Harley Borjas MD #### CDP, CP #### [address] [place] [address] Utilization Review Coordinator: Libby Bah MD #### HCVQN #### [address] [address] Utilization Review Coordinator: Harley Borjas MD [address] [place] [address] Utilization Review Coordinator: Libby Bah MD Calcium [Mass/Vol] 9.6 mg/dL Normal 8.6-10.4 [facility] Comment on above: Performed By: #### V D25, HIVCMB, URNMAB, FEBC, LIPR, B12FOL, AHCV #### [address] [address] Utilization Review Coordinator: Harley Borjas MD #### CDP, CP #### [address] [place] [address] Utilization Review Coordinator: Libby Bah MD #### HCVQN #### [address] [address] Utilization Review Coordinator: Harley Borjas MD [address] [place] [address] Utilization Review Coordinator: Libby Bah MD Chloride [Moles/Vol] 97 mmol/L Low 98-107 [facility] Comment on above: Performed By: #### V D25, HIVCMB, URNMAB, FEBC, LIPR, B12FOL, AHCV #### [address] [address] Utilization Review Coordinator: Harley Borjas MD #### CDP, CP #### [address] [place] [address] Utilization Review Coordinator: Libby Bah MD #### HCVQN #### [address] [address] Utilization Review Coordinator: Harley Borjas MD [address] [place] [address] Utilization Review Coordinator: Libby Bah MD CO2 [Moles/Vol] 24 mmol/L Normal 20-31 [facility] Comment on above: Performed By: #### V D25, HIVCMB, URNMAB, FEBC, LIPR, B12FOL, AHCV #### [place] [address] [place] [address] Utilization Review Coordinator: Harley Borjas MD #### CDP, CP #### [address] [place], [place] [phone] Utilization Review Coordinator: Libby Bah MD #### HCVQN #### [address] [address] Utilization Review Coordinator: Harley Borjas MD [facility] [address] [place] [address] [place] [place], [place] [phone] Utilization Review Coordinator: Libby Bah MD Creatinine [Mass/Vol] 0.6 mg/dL Normal 0.50-0.90 [facility] Comment on above: Performed By: #### V D25, HIVCMB, URNMAB, FEBC, LIPR, B12FOL, AHCV #### [address] [address] Utilization Review Coordinator: Harley Borjas MD #### CDP, CP #### [address] [place], [place] [id number] Utilization Review Coordinator: Libby Bah MD #### HCVQN #### [address] [address] Utilization Review Coordinator: Harley Borjas MD [address] [place], [place] 5626183 Utilization Review Coordinator: Libby Bah MD GFR/1.73 sq M.predicted among non-blacks MDRD (S/P/Bld) [Vol rate/Area] mL/min/{1.73_m2} Normal >60 [facility] Comment on above: Result Comment: These results are not intended for [...] following therapy that affects renal tubular secretion. Performed By: #### V D25, HIVCMB, URNMAB, FEBC, LIPR, B12FOL, AHCV #### [facility] [address] [place] [address] Utilization Review Coordinator: Harley Borjas MD #### CDP, CP #### [address] [place] [address] Utilization Review Coordinator: Libby Bah MD #### HCVQN #### [facility] [address] [place] [address] Utilization Review Coordinator: Harley Borjas MD [address] [place] [address] Utilization Review Coordinator: Libby Bah MD Glucose [Mass/Vol] 100 mg/dL High 74-99 [facility] Comment on above: Performed By: #### V D25, HIVCMB, URNMAB, FEBC, LIPR, B12FOL, AHCV #### [facility] [address] [place] [address] Utilization Review Coordinator: Harley Borjas MD #### CDP, CP #### [address] [place] [address] Utilization Review Coordinator: Libby Bah MD #### HCVQN #### [address] [address] Utilization Review Coordinator: Harley Borjas MD [address] [place] [address] Utilization Review Coordinator: Libby Bah MD Potassium [Moles/Vol] 4.0 mmol/L Normal 3.7-5.3 [facility] Comment on above: Performed By: #### V D25, HIVCMB, URNMAB, FEBC, LIPR, B12FOL, AHCV #### [facility] [address] [place] [address] Utilization Review Coordinator: Harley Borjas MD #### CDP, CP #### [address] [place] [address] Utilization Review Coordinator: Libby Bah MD #### HCVQN #### [address] [address] Utilization Review Coordinator: Harley Borjas MD [address] [place], [place] 7446983 Utilization Review Coordinator: Libby Bah MD Protein [Mass/Vol] 7.9 g/dL Normal 6.6-8.7 [facility] Comment on above: Performed By: #### V D25, HIVCMB, URNMAB, FEBC, LIPR, B12FOL, AHCV #### [facility] [address] [place] [address] Utilization Review Coordinator: Harley Borjas MD #### CDP, CP #### [address] [place], [place] 1915383 Utilization Review Coordinator: Libby Bah MD #### HCVQN #### [address] [address] Utilization Review Coordinator: Harley Borjas MD [address] [place] [phone] Utilization Review Coordinator: Libby Bah MD Sodium [Moles/Vol] 133 mmol/L Low 136-145 [facility] Comment on above: Performed By: #### V D25, HIVCMB, URNMAB, FEBC, LIPR, B12FOL, AHCV #### [facility] [address] [place] [address] Utilization Review Coordinator: Harley Borjas MD #### CDP, CP #### [address] [place], [place] [phone] Utilization Review Coordinator: Libby Bah MD #### HCVQN #### [address] [address] Utilization Review Coordinator: Harley Borjas MD [address] [place], [place] [phone] Utilization Review Coordinator: Libby Bah MD Urea nitrogen [Mass/Vol] 14 mg/dL Normal 8-23 [facility] Comment on above: Performed By: #### V D25, HIVCMB, URNMAB, FEBC, LIPR, B12FOL, AHCV #### [facility] [address] [place], [place] [phone] Utilization Review Coordinator: Harley Borjas MD #### CDP, CP #### [facility] [address] [place] [address] Utilization Review Coordinator: Libby Bah MD #### HCVQN #### [facility] [address] [place], [place] [id number] Utilization Review Coordinator: Harley Borjas MD [facility] [address] [place] [address] Utilization Review Coordinator: Libby Bah MD Comprehensive Metabolic Pane [facility] 02-29-2024 Albumin [Mass/Vol] 4.5 g/dL 3.5 - 5.2 g/dL [facility] Albumin/Globulin [Mass ratio] 1.3 {ratio} 1.0 - 2.5 [facility] ALP [Catalytic activity/Vol] 92 U/L 35 - 104 U/L [facility] ALT [Catalytic activity/Vol] 22 U/L 10 - 35 U/L [facility] Anion gap [Moles/Vol] 12 mmol/L 9 - 16 mmol/L [facility] AST [Catalytic activity/Vol] 20 U/L 10 - 35 U/L [facility] Bilirubin [Mass/Vol] 0.4 mg/dL 0.00 - 1.20 mg/dL [facility] Calcium [Mass/Vol] 9.6 mg/dL 8.6 - 10. 4 mg/dL [facility] Chloride [Moles/Vol] 97 mmol/L Low 98 - 107 mmol/L [facility] CO2 [Moles/Vol] 24 mmol/L 20 - 31 mmol/L [facility] Creatinine [Mass/Vol] 0.6 mg/dL 0.50 - 0.90 mg/dL [facility] Est, Glom Filt Rate - PINF [facility] Comment on above: These results are not intended for use [...] following therapy that affects renal tubular secretion. Glucose [Mass/Vol] 100 mg/dL High 74 - 99 mg/dL [facility] Interpretation and review of laboratory results Abnormal [facility] Potassium [Moles/Vol] 4.0 mmol/L 3.7 - 5.3 mmol/L [facility] Protein [Mass/Vol] 7.9 g/dL 6.6 - 8.7 g/dL [facility] Sodium [Moles/Vol] 133 mmol/L Low 136 - 145 mmol/L [facility] Urea nitrogen [Mass/Vol] 14 mg/dL 8 - 23 mg/dL [facility] Urea nitrogen/Creatinine [Mass ratio] 23 mg/mg High 9 - 20 [facility] HCV RNA,Quant,PCRon 02-29-20 24 Source .PLASMA Normal [facility] Comment on above: Performed By: #### F EBC, VD25, URNMAB, B12FOL, LIPR #### [facility] [employer] [address] [place] [address] Utilization Review Coordinator: Harley Borjas MD #### CDP, TSH, CP #### [facility] [address] [place] [address] Utilization Review Coordinator: Libby Bah MD HIV Ag/Abon 02-29-2024 HIV Ag/Ab Non-Reactive Normal [facility] Comment on above: Result Comment: No l aboratory evidence of HIV infection. If acute HIV infection is suspected, consider testing for HIV-1 RNA. Performed By: #### F EBC, VD25, URNMAB, B12FOL, LIPR #### [facility] [employer] [address] [place], [place] [id number] Utilization Review Coordinator: Harley Borjas MD #### SCOOTER TSH, CP #### [facility] [address] [place] [address] Utilization Review Coordinator: Libby Bah MD HIV Screenon 02-29-2024 HIV 1+2 Ab+HIV1 p24 Ag IA Ql Non-Reactive NONREACTIVE [facility] Comment on above: No laboratory eviden ce of HIV infection. If acute HIV infection is suspected, consider testing for HIV-1 RNA. [facility] Hep C Abon 02-29-2024 Hep C Ab Non-Reactive Normal NR [facility] Comment on above: Result Comment: The hepatitis C procedure used in [...] recommended by ordering HCV RNA by PCR. Performed By: #### F EBC, VD25, URNMAB, B12FOL, LIPR #### [facility], [place] [id number] Utilization Review Coordinator: Harley Borjas MD #### CARSON HELMS, CP #### [facility] [address] [place] [address] Utilization Review Coordinator: Libby Bah MD Hepatitis C Antibodyon 02-28 HCV Ab IA Ql Non-Reactive NONREACTIVE [facility] Comment on above: The hepatitis C procedure used in our [...] recommended by ordering HCV RNA by PCR. Iron Binding Cap.on 02-29-20 24 % Fe Saturation 10 % Low 20-55 [facility] Comment on above: Performed By: #### F EBC, VD25, URNMAB, B12FOL, LIPR #### [address] [address] Utilization Review Coordinator: Harley Borjas MD #### CDP, TSH, CP #### [address] [place], [place] [phone] Utilization Review Coordinator: Libby Bah MD Iron [Mass/Vol] 41 ug/dL Normal 37-145 [facility] Comment on above: Performed By: #### F EBC, VD25, URNMAB, B12FOL, LIPR #### [address] [address] Utilization Review Coordinator: Harley Borjas MD #### CDP, TSH, CP #### [address] [place], [place] [id number] Utilization Review Coordinator: Libby Bah MD Total Fe Binding Cap 405 ug/dL Normal 250-450 [facility] Comment on above: Performed By: #### F EBC, VD25, URNMAB, B12FOL, LIPR #### [address] [address] Utilization Review Coordinator: Harley Borjas MD #### CDP, TSH, CP #### [address] [place], [place] [phone] Utilization Review Coordinator: Libby Bah MD Unbound Fe Bind Cap 364 ug/dL High 112-347 [facility] Comment on above: Performed By: #### F EBC, VD25, URNMAB, B12FOL, LIPR #### [address] [address] Utilization Review Coordinator: Harley Borjas MD #### CDP, TSH, CP #### [facility] [address] [place] [address] Utilization Review Coordinator: Libby Bah MD Iron and TIBCon 02-29-2024 Iron [Mass/Vol] 41 ug/dL 37 - 145 ug/dL [facility] Iron binding capacity [Mass/Vol] 405 ug/dL 250 - 450 ug/dL [facility] Iron saturation [Mass fraction] 10 % Low 20 - 55 % [facility] UIBC 364 ug/dL High 112 - 347 ug/dL [facility] Lipid Panelon 02-29-2024 Cholesterol [Mass/Vol] 134 mg/dL 0 - 199 mg/dL [facility] Comment on above: Cholesterol Guidelines: <200 Desirable 200-240 Borderline >240 Undesirable Cholesterol in HDL [Mass/Vol] 44 mg/dL 40 - PINF mg/dL [facility] Comment on above: HDL Guidelines: <40 Undesirable 40-59 Borderline >59 Desirable Cholesterol in LDL [Mass/Vol] 76 mg/dL 0 - 100 mg/dL [facility] Comment on above: LDL Guidelines: <100 Desirable 100-129 Near to/above Desirable 130-159 Borderline >159 Undesirable Direct (measured) LDL and calculated LDL are not interchangeable tests. Cholesterol in VLDL [Mass/Vol] 14 mg/dL 1 - 30 mg/dL [facility] Cholesterol.total/Ch olesterol in HDL [Mass ratio] 3.0 {ratio} [facility] Triglyceride [Mass/Vol] 72 mg/dL NINF - 150 mg/dL [facility] Comment on above: Triglyceride Guidelines: <150 Desirable 150-199 Borderline 200-499 High >499 Very high Based on AHA Guidelines for fasting triglyceride, January 2012. Lipid Profileon 02-29-2024 Cholesterol [Mass/Vol] 134 mg/dL Normal 0-199 [facility] Comment on above: Result Comment: Cholesterol Guidelines: <200 Desirable 200-240 Borderline >240 Undesirable Performed By: #### F EBC, VD25, URNMAB, B12FOL, LIPR #### [facility] [employer] [address] [place] [address] Utilization Review Coordinator: Harley Borjas MD #### CDP, TSH, CP #### [facility] [address] [place] [address] Utilization Review Coordinator: Libby Bah MD Cholesterol in HDL [Mass/Vol] 44 mg/dL Normal >40 [facility] Comment on above: Result Comment: HDL Guidelines: <40 Undesirable 40-59 Borderline >59 Desirable Performed By: #### F EBC, VD25, URNMAB, B12FOL, LIPR #### [address] [address] Utilization Review Coordinator: Harley Borajs MD #### CDP, TSH, CP #### [facility] [address] [place] [address] [place] [phone] Utilization Review Coordinator: Libby Bah MD Cholesterol in LDL [Mass/Vol] 76 mg/dL Normal 0-100 [facility] Comment on above: Result Comment: LDL Guidelines: <100 Desirable 100-129 Near to/above Desirable 130-159 Borderline >159 Undesirable Direct (measured) LDL and calculated LDL are not interchangeable tests. Performed By: #### F EBC, VD25, URNMAB, B12FOL, LIPR #### [address] [address] Utilization Review Coordinator: Harley Borjas MD #### CDP, TSH, CP #### [address] [place] [phone] Utilization Review Coordinator: Libby Bah MD Cholesterol in VLDL [Mass/Vol] 14 mg/dL Normal 1-30 [facility] Comment on above: Performed By: #### F EBC, VD25, URNMAB, B12FOL, LIPR #### [address] [address] Utilization Review Coordinator: Harley Borjas MD #### CDP, TSH, CP #### [facility] [address] [place] [address] [place] [phone] Utilization Review Coordinator: Libby Bah MD Cholesterol.total/Ch olesterol in HDL [Mass ratio] 3.0 {ratio} Normal [facility] Comment on above: Performed By: #### F EBC, VD25, URNMAB, B12FOL, LIPR #### [address] [address] Utilization Review Coordinator: Harley Borjas MD #### CDP, TSH, CP #### [address] [place] [address] Utilization Review Coordinator: Libby Bah MD Triglyceride [Mass/Vol] 72 mg/dL Normal <150 [facility] Comment on above: Result Comment: Triglyceride Guidelines: <150 Desirable 150-199 Borderline 200-499 High >499 Very high Based on AHA Guidelines for fasting triglyceride, January 2012. Performed By: #### F EBC, VD25, URNMAB, B12FOL, LIPR #### [address] [address] Utilization Review Coordinator: Harley Borjas MD #### CDP, TSH, CP #### [address] [place] [address] Utilization Review Coordinator: Libby Bah MD Microalb.,Random Uron 2023 Creatinine [Mass/Vol] 40.4 mg/dL Normal 28.0-217.0 [facility] Comment on above: Result Comment: Refe rence range defined for 1st morning urine Performed By: #### F EBC, VD25, URNMAB, B12FOL, LIPR #### [address] [address] Utilization Review Coordinator: Harley Borjas MD #### CDP, TSH, CP #### [facility] [address] [place] [address] [place] [address] Utilization Review Coordinator: Libby Bah MD Microalb/Creat Ratio Can not be calculated Normal 0.0-25.0 [facility] Comment on above: Performed By: #### F EBC, VD25, URNMAB, B12FOL, LIPR #### [address] [address] Utilization Review Coordinator: Harley Borjas MD #### CDP, TSH, CP #### [facility] [address] [place] [address] Utilization Review Coordinator: Libby Bah MD Microalbumin conc. <12 Normal 0-20 [facility] Comment on above: Performed By: #### F EBC, VD25, URNMAB, B12FOL, LIPR #### [facility] [address] [place], [place] [phone] Utilization Review Coordinator: Harley Borjas MD #### CDP, TSH, CP #### [facility] [address] [place] [address] Utilization Review Coordinator: Libby Bah MD Microalbumin, Uron Albumin DL <= 20 mg/L (U) [Mass/Vol] mg/L 0 - 20 mg/L [facility] Albumin/Creatinine DL <= 20 mg/L (U) [Ratio] Can not be calculated [facility] Creatinine (U) [Mass/Vol] 40.4 mg/dL 28.0 - 217.0 mg/dL [facility] Comment on above: Reference range defi daria for 1st morning urine [facility] No Panel Informationon 02-28 [facility] Interpretation and review of laboratory results Abnormal [facility] Vitamin B12 & Folateon 02-28 Folate [Mass/Vol] 9.2 ng/mL 4.8 - 24.2 ng/mL [facility] Vitamin D 25 Hydroxyon 02-28 25-hydroxyvitamin D3 [Mass/Vol] 29.2 ng/mL Low 30.0 - 100.0 ng/mL [facility] Comment on above: Reference Range: Vitamin D status Range Deficiency <20 ng/mL Mild Deficiency 20-30 ng/mL Sufficiency 30-100 ng/mL Toxicity >100 ng/mL Vitamin D 25 OHon 02-29-2024 Vitamin D 25 OH 29.2 ng/mL Low 30.0-100.0 [facility] Comment on above: Result Comment: Reference Range: Vitamin D status Range Deficiency <20 ng/mL Mild Deficiency 20-30 ng/mL Sufficiency 30-100 ng/mL Toxicity >100 ng/mL Performed By: #### F EBC, VD25, URNMAB, B12FOL, LIPR #### [address] [address] Utilization Review Coordinator: Harley Borjas MD #### CDP, TSH, CP #### [address] [place], [place] [address] Utilization Review Coordinator: Libby Bah MD B12/Folate Panelon Cobalamin (Vitamin B12) [Mass/Vol] 242 pg/mL Normal 232-1245 [facility] Comment on above: Performed By: #### F EBC, VD25, URNMAB, B12FOL, LIPR #### [address] [address] Utilization Review Coordinator: Harley Borjas MD #### CDP, TSH, CP #### [address] [place], [place] [phone] Utilization Review Coordinator: Libby Bah MD Folic Acid 12.5 ng/mL Normal 4.8-24.2 [facility] Comment on above: Performed By: #### F EBC, VD25, URNMAB, B12FOL, LIPR #### [address] [address] Utilization Review Coordinator: Harley Borjas MD #### CDP, TSH, CP #### [address] [place], [place] 1967[address]83 Utilization Review Coordinator: Libby Bah MD CBC with Diffon 11-09-2023 Abs. Basophil 0.08 k/uL Normal 0.00-0.20 [facility] Comment on above: Performed By: #### F EBC, VD25, URNMAB, B12FOL, LIPR #### [address] [address] Utilization Review Coordinator: Harley Borjas MD #### CDP, TSH, CP #### [address] [place] [phone] Utilization Review Coordinator: Libby Bah MD Abs.Imm.Granulocyte 0.05 k/uL Normal 0.00-0.30 [facility] Comment on above: Performed By: #### F EBC, VD25, URNMAB, B12FOL, LIPR #### [address] [address] Utilization Review Coordinator: Harley Borjas MD #### CDP, TSH, CP #### [address] [place] [phone] Utilization Review Coordinator: Libby Bah MD Abs.Neutrophil (Seg) 5.87 k/uL Normal 1.50-8.10 [facility] Comment on above: Performed By: #### F EBC, VD25, URNMAB, B12FOL, LIPR #### [address] [address] Utilization Review Coordinator: Harley Borjas MD #### CDP, TSH, CP #### [address] [place] [phone] Utilization Review Coordinator: Libby Bah MD Basophils/100 WBC (Bld) 1 % Normal 0-2 [facility] Comment on above: Performed By: #### F EBC, VD25, URNMAB, B12FOL, LIPR #### [address] [address] Utilization Review Coordinator: Harley Borjas MD #### CDP, TSH, CP #### [address] [place] [phone] Utilization Review Coordinator: Libby Bah MD Eosinophils (Bld) [#/Vol] 0.65 10*3/uL High 0.00-0.44 [facility] Comment on above: Performed By: #### F EBC, VD25, URNMAB, B12FOL, LIPR #### [place] [address] [place] [address] Utilization Review Coordinator: Harley Borjas MD #### CDP, TSH, CP #### [address] [place], [place] [phone] Utilization Review Coordinator: Libby Bah MD Eosinophils/100 WBC (Bld) 7 % High 1-4 [facility] Comment on above: Performed By: #### F EBC, VD25, URNMAB, B12FOL, LIPR #### [address] [address] Utilization Review Coordinator: Harley Borjas MD #### CDP, TSH, CP #### [address] [place] [phone] Utilization Review Coordinator: Libby Bah MD Erythrocyte distribution width (RBC) [Ratio] 15.1 % High 11.8-14.4 [facility] Comment on above: Performed By: #### F EBC, VD25, URNMAB, B12FOL, LIPR #### [address] [address] Utilization Review Coordinator: Harley Borjas MD #### CDP, TSH, CP #### [address] [place], [facility]83 Utilization Review Coordinator: Libby Bah MD Hematocrit (Bld) [Volume fraction] 37.2 % Normal 36.3-47.1 [facility] Comment on above: Performed By: #### F EBC, VD25, URNMAB, B12FOL, LIPR #### [address] [address] Utilization Review Coordinator: Harley Borjas MD #### CDP, TSH, CP #### [address] [place] [phone] Utilization Review Coordinator: Libby Bah MD Hemoglobin (Bld) [Mass/Vol] 11.7 g/dL Low 11.9-15.1 [facility] Comment on above: Performed By: #### F EBC, VD25, URNMAB, B12FOL, LIPR #### [address] [address] Utilization Review Coordinator: Harley Borjas MD #### CDP, TSH, CP #### [address] [place], [place] 8[address]83 Utilization Review Coordinator: Libby Bah MD Immature granulocytes/100 WBC (Bld) 1 % High 0 [facility] Comment on above: Performed By: #### F EBC, VD25, URNMAB, B12FOL, LIPR #### [address] [address] Utilization Review Coordinator: Harley Borjas MD #### CDP, TSH, CP #### [address] [place] [phone] Utilization Review Coordinator: Libby Bah MD Lymphocytes (Bld) [#/Vol] 2.49 10*3/uL Normal 1.10-3.70 [facility] Comment on above: Performed By: #### F EBC, VD25, URNMAB, B12FOL, LIPR #### [address] [address] Utilization Review Coordinator: Harley Borjas MD #### CDP, TSH, CP #### [address] [place], [place] [phone] Utilization Review Coordinator: Libby Bah MD Lymphocytes/100 WBC (Bld) 25 % Normal 24-43 [facility] Comment on above: Performed By: #### F EBC, VD25, URNMAB, B12FOL, LIPR #### [address] [address] Utilization Review Coordinator: Harley Borjas MD #### CDP, TSH, CP #### [facility] [address] [place] [address] [place], [place] [phone] Utilization Review Coordinator: Libby Bah MD MCH (RBC) [Entitic mass] 25.2 pg Normal 25.2-33.5 [facility] Comment on above: Performed By: #### F EBC, VD25, URNMAB, B12FOL, LIPR #### [address] [id number] Utilization Review Coordinator: Harley Borjas MD #### CDP, TSH, CP #### [address] [place] [phone] Utilization Review Coordinator: Libby Bah MD MCHC (RBC) [Mass/Vol] 31.5 g/dL Normal 28.4-34.8 [facility] Comment on above: Performed By: #### F EBC, VD25, URNMAB, B12FOL, LIPR #### [address] [address] Utilization Review Coordinator: Harley Borjas MD #### CDP, TSH, CP #### [address] [place], [place] [phone] Utilization Review Coordinator: Libby Bah MD MCV (RBC) [Entitic vol] 80.2 fL Low 82.6-102.9 [facility] Comment on above: Performed By: #### F EBC, VD25, URNMAB, B12FOL, LIPR #### [address] [address] Utilization Review Coordinator: Harley Borjas MD #### CDP, TSH, CP #### [address] [place] [address] Utilization Review Coordinator: Libby Bah MD Monocytes (Bld) [#/Vol] 0.73 10*3/uL Normal 0.10-1.20 [facility] Comment on above: Performed By: #### F EBC, VD25, URNMAB, B12FOL, LIPR #### [address] [address] Utilization Review Coordinator: Harley Borjas MD #### CDP, TSH, CP #### [address] [place], [place] [phone] Utilization Review Coordinator: Libby Bah MD Monocytes/100 WBC (Bld) 7 % Normal 3-12 [facility] Comment on above: Performed By: #### F EBC, VD25, URNMAB, B12FOL, LIPR #### [address] [address] Utilization Review Coordinator: Harley Borjas MD #### CDP, TSH, CP #### [address] [place] [phone] Utilization Review Coordinator: Libby Bah MD Neutrophil (Seg) 59 % Normal 36-65 [facility] Comment on above: Performed By: #### F EBC, VD25, URNMAB, B12FOL, LIPR #### [address] [address] Utilization Review Coordinator: Harley Borjas MD #### CDP, TSH, CP #### [address] [place] [phone] Utilization Review Coordinator: Libby Bah MD NRBC Automated 0.0 per 100 WBC Normal 0.0 [facility] Comment on above: Performed By: #### F EBC, VD25, URNMAB, B12FOL, LIPR #### [address] [id number] Utilization Review Coordinator: Harley Borjas MD #### CDP, TSH, CP #### [address] [place], [place] 6578483 Utilization Review Coordinator: Libby Bha MD Platelet mean volume (Bld) [Entitic vol] 9.8 fL Normal 8.1-13.5 [facility] Comment on above: Performed By: #### F EBC, VD25, URNMAB, B12FOL, LIPR #### [address] [address] Utilization Review Coordinator: Harley Borjas MD #### CDP, TSH, CP #### [address] [place] [address] Utilization Review Coordinator: Libby Bah MD Platelets (Bld) [#/Vol] 428 10*3/uL Normal 138-453 [facility] Comment on above: Performed By: #### F EBC, VD25, URNMAB, B12FOL, LIPR #### [address] [address] Utilization Review Coordinator: Harley Borjas MD #### CDP, TSH, CP #### [address] [place], [place] 1925583 Utilization Review Coordinator: Libby Bah MD RBC (Bld) [#/Vol] 4.64 10*6/uL Normal 3.95-5.11 [facility] Comment on above: Performed By: #### F EBC, VD25, URNMAB, B12FOL, LIPR #### [address] [address] Utilization Review Coordinator: Harley Borjas MD #### CDP, TSH, CP #### [address] [place], [place] 055[address]83 Utilization Review Coordinator: Libby Bah MD WBC (Bld) [#/Vol] 9.9 10*3/uL Normal 3.5-11.3 [facility] Comment on above: Performed By: #### F EBC, VD25, URNMAB, B12FOL, LIPR #### [address] [address] Utilization Review Coordinator: Harley Borjas MD #### CDP, TSH, CP #### [facility] [address] [place] [address] [place] [place], [place] [phone] Utilization Review Coordinator: Libby Bah MD Comp Metabolic Profon 2023 Albumin [Mass/Vol] 4.2 g/dL Normal 3.5-5.2 [facility] Comment on above: Performed By: #### F EBC, VD25, URNMAB, B12FOL, LIPR #### [address] [address] Utilization Review Coordinator: Harley Borjas MD #### CDP, TSH, CP #### [address] [place], [place] 1775483 Utilization Review Coordinator: Libby Bah MD Albumin/Glob Ratio 1.2 Normal 1.0-2.5 [facility] Comment on above: Performed By: #### F EBC, VD25, URNMAB, B12FOL, LIPR #### [address] [address] Utilization Review Coordinator: Harley Borjas MD #### CDP, TSH, CP #### [address] [place], [place] [phone] Utilization Review Coordinator: Libby Bah MD Alkaline Phos 104 U/L Normal 35-104 [facility] Comment on above: Performed By: #### F EBC, VD25, URNMAB, B12FOL, LIPR #### [address] [address] Utilization Review Coordinator: aHrley Borjas MD #### CDP, TSH, CP #### [facility] [address] [place], [place] [phone] Utilization Review Coordinator: Libby Bah MD ALT [Catalytic activity/Vol] 26 U/L Normal 5-33 [facility] Comment on above: Performed By: #### F EBC, VD25, URNMAB, B12FOL, LIPR #### [facility] [address] [place] [address] Utilization Review Coordinator: Harley Borjas MD #### CDP, TSH, CP #### [facility] [address] [place], [place] [phone] Utilization Review Coordinator: Libby Bah MD Anion gap [Moles/Vol] 10 mmol/L Normal 9-17 [facility] Comment on above: Performed By: #### F EBC, VD25, URNMAB, B12FOL, LIPR #### [place] [address] [place] [address] Utilization Review Coordinator: Harley Borjas MD #### CDP, TSH, CP #### [facility] [address] [place] [address] [place], [place] [phone] Utilization Review Coordinator: Libby Bah MD AST [Catalytic activity/Vol] 19 U/L Normal <32 [facility] Comment on above: Performed By: #### F EBC, VD25, URNMAB, B12FOL, LIPR #### [place] [address] [place] [address] Utilization Review Coordinator: Harley Borjas MD #### CDP, TSH, CP #### [facility] [address] [place] [address] [place] [place], [place] [phone] Utilization Review Coordinator: Libby Bah MD Bilirubin [Mass/Vol] 0.3 mg/dL Normal 0.3-1.2 [facility] Comment on above: Performed By: #### F EBC, VD25, URNMAB, B12FOL, LIPR #### [place] [address] [place] [address] Utilization Review Coordinator: Harley Borjas MD #### CDP, TSH, CP #### [facility] [address] [place], [place] [phone] Utilization Review Coordinator: Libby Bah MD BUN/CRE Ratio 23 High 9-20 [facility] Comment on above: Performed By: #### F EBC, VD25, URNMAB, B12FOL, LIPR #### [address] [address] Utilization Review Coordinator: Harely Borjas MD #### CDP, TSH, CP #### [address] [place], [place] [phone] Utilization Review Coordinator: Libby Bah MD Calcium [Mass/Vol] 9.2 mg/dL Normal 8.6-10.4 [facility] Comment on above: Performed By: #### F EBC, VD25, URNMAB, B12FOL, LIPR #### [address] [address] Utilization Review Coordinator: Harley Borjas MD #### CDP, TSH, CP #### [address] [place], [place] [phone] Utilization Review Coordinator: Libby Bah MD Chloride [Moles/Vol] 100 mmol/L Normal 98-107 [facility] Comment on above: Performed By: #### F EBC, VD25, URNMAB, B12FOL, LIPR #### [address] [address] Utilization Review Coordinator: Harley Borjas MD #### CDP, TSH, CP #### [address] [place], [place] [phone] Utilization Review Coordinator: Libby Bah MD CO2 [Moles/Vol] 25 mmol/L Normal 20-31 [facility] Comment on above: Performed By: #### F EBC, VD25, URNMAB, B12FOL, LIPR #### [address] [address] Utilization Review Coordinator: Harley Borjas MD #### CDP, TSH, CP #### [facility] [address] [place] [address] [place] [address] Utilization Review Coordinator: Libby Bah MD Creatinine [Mass/Vol] 0.6 mg/dL Normal 0.5-0.9 [facility] Comment on above: Performed By: #### F EBC, VD25, URNMAB, B12FOL, LIPR #### [place] [address] [place], [place] [id number] Utilization Review Coordinator: Harley Borjas MD #### CDP, TSH, CP #### [facility] [address] [place] [address] [place] [address] Utilization Review Coordinator: Libby Bah MD GFR/1.73 sq M.predicted among non-blacks MDRD (S/P/Bld) [Vol rate/Area] mL/min/{1.73_m2} Normal >60 [facility] Comment on above: Result Comment: These results are not intended for [...] following therapy that affects renal tubular secretion. Performed By: #### F EBC, VD25, URNMAB, B12FOL, LIPR #### [place] [id number] [place], [place] [phone] Utilization Review Coordinator: Harley Borjas MD #### CDP, TSH, CP #### [facility] [address] [place] [address] [place] [address] Utilization Review Coordinator: Libby Bah MD Glucose [Mass/Vol] 98 mg/dL Normal 70-99 [facility] Comment on above: Performed By: #### F EBC, VD25, URNMAB, B12FOL, LIPR #### [address] [place], [place] [id number] Utilization Review Coordinator: Harley Borjas MD #### CDP, TSH, CP #### [address] [place] [address] Utilization Review Coordinator: Libby Bah MD Potassium [Moles/Vol] 4.1 mmol/L Normal 3.7-5.3 [facility] Comment on above: Performed By: #### F EBC, VD25, URNMAB, B12FOL, LIPR #### [address] [address] Utilization Review Coordinator: Harley Borjas MD #### CDP, TSH, CP #### [address] [place] [address] Utilization Review Coordinator: Libby Bah MD Protein [Mass/Vol] 7.6 g/dL Normal 6.4-8.3 [facility] Comment on above: Performed By: #### F EBC, VD25, URNMAB, B12FOL, LIPR #### [address] [address] Utilization Review Coordinator: Harley Borjas MD #### CDP, TSH, CP #### [address] [place] [address] Utilization Review Coordinator: Libby Bah MD Sodium [Moles/Vol] 135 mmol/L Normal 135-144 [facility] Comment on above: Performed By: #### F EBC, VD25, URNMAB, B12FOL, LIPR #### [address] [address] Utilization Review Coordinator: Harley Borjas MD #### CDP, TSH, CP #### [address] [place] [address] Utilization Review Coordinator: Libby Bah MD Urea nitrogen [Mass/Vol] 14 mg/dL Normal 6-20 [facility] Comment on above: Performed By: #### F EBC, VD25, URNMAB, B12FOL, LIPR #### [address] [place] [address] Utilization Review Coordinator: Harley Borjas MD #### CDP, TSH, CP #### [facility] [address] [place] [address] [place], [place] [phone] Utilization Review Coordinator: Libby Bah MD Iron Binding Cap.on 11-09-19 24 % Fe Saturation 10 % Low 20-55 [facility] Comment on above: Performed By: #### F EBC, VD25, URNMAB, B12FOL, LIPR #### [address] [place] [address] Utilization Review Coordinator: Harley Borjas MD #### CDP, TSH, CP #### [facility] [address] [place] [address] [place] [address] Utilization Review Coordinator: Libby Bah MD Iron [Mass/Vol] 37 ug/dL Normal 37-145 [facility] Comment on above: Performed By: #### F EBC, VD25, URNMAB, B12FOL, LIPR #### [address] [address] Utilization Review Coordinator: Harley Borjas MD #### CDP, TSH, CP #### [facility] [address] [place] [address] [place] [address] Utilization Review Coordinator: Libby Bah MD Total Fe Binding Cap 387 ug/dL Normal 250-450 [facility] Comment on above: Performed By: #### F EBC, VD25, URNMAB, B12FOL, LIPR #### [address] [address] Utilization Review Coordinator: Harley Borjas MD #### CDP, TSH, CP #### [facility] [address] [place] [address] [place], [place] [phone] Utilization Review Coordinator: Libby Bah MD Unbound Fe Bind Cap 350 ug/dL High 112-347 [facility] Comment on above: Performed By: #### F EBC, VD25, URNMAB, B12FOL, LIPR #### [address] [place], [place] [phone] Utilization Review Coordinator: Harley Borjas MD #### CDP, TSH, CP #### [address] [place] [address] Utilization Review Coordinator: Libby Bah MD Lipid Profileon 11-09-2023 Cholesterol [Mass/Vol] 126 mg/dL Normal 0-199 [facility] Comment on above: Result Comment: Cholesterol Guidelines: <200 Desirable 200-240 Borderline >240 Undesirable Performed By: #### F EBC, VD25, URNMAB, B12FOL, LIPR #### [address] [phone] Utilization Review Coordinator: Harley Borjas MD #### CDP, TSH, CP #### [address] [place] [address] Utilization Review Coordinator: Libby Bah MD Cholesterol in HDL [Mass/Vol] 42 mg/dL Normal >40 [facility] Comment on above: Result Comment: HDL Guidelines: <40 Undesirable 40-59 Borderline >59 Desirable Performed By: #### F EBC, VD25, URNMAB, B12FOL, LIPR #### [address] [phone] Utilization Review Coordinator: Harley Borjas MD #### CDP, TSH, CP #### [address] [place] [address] Utilization Review Coordinator: Libby Bah MD Cholesterol in LDL [Mass/Vol] 67 mg/dL Normal 0-100 [facility] Comment on above: Result Comment: LDL Guidelines: <100 Desirable 100-129 Near to/above Desirable 130-159 Borderline >159 Undesirable Direct (measured) LDL and calculated LDL are not interchangeable tests. Performed By: #### F EBC, VD25, URNMAB, B12FOL, LIPR #### [address] [place] [address] Utilization Review Coordinator: Harely Borjas MD #### CDP, TSH, CP #### [facility] [address] [place] [address] [place], [place] [phone] Utilization Review Coordinator: Libby Bah MD Cholesterol in VLDL [Mass/Vol] 17 mg/dL Normal [facility] Comment on above: Performed By: #### F EBC, VD25, URNMAB, B12FOL, LIPR #### [address] [address] Utilization Review Coordinator: Harley Borjas MD #### CDP, TSH, CP #### [address] [place], [place] [phone] Utilization Review Coordinator: Libby Bah MD Cholesterol.total/Ch olesterol in HDL [Mass ratio] 3.0 {ratio} Normal [facility] Comment on above: Performed By: #### F EBC, VD25, URNMAB, B12FOL, LIPR #### [address] [address] Utilization Review Coordinator: Harley Borjas MD #### CDP, TSH, CP #### [address] [place], [place] [phone] Utilization Review Coordinator: Libby Bah MD Triglyceride [Mass/Vol] 87 mg/dL Normal <150 [facility] Comment on above: Result Comment: Triglyceride Guidelines: <150 Desirable 150-199 Borderline 200-499 High >499 Very high Based on AHA Guidelines for fasting triglyceride, January 2012. Performed By: #### F EBC, VD25, URNMAB, B12FOL, LIPR #### [address] [place] [address] Utilization Review Coordinator: Harley Borjas MD #### CDP, TSH, CP #### [address] [place] [phone] Utilization Review Coordinator: Libby Bah MD Microalb.,Random Uron 2023 Creatinine [Mass/Vol] 39.6 mg/dL Normal 28.0-217.0 [facility] Comment on above: Performed By: #### F EBC, VD25, URNMAB, B12FOL, LIPR #### [address] [id number] Utilization Review Coordinator: Harley Borjas MD #### CDP, TSH, CP #### [facility] [address] [place] [address] [address] [place] [phone] Utilization Review Coordinator: Libby Bah MD Microalb/Creat Ratio Can not be calculated Normal 0.0-25.0 [facility] Comment on above: Performed By: #### F EBC, VD25, URNMAB, B12FOL, LIPR #### [address] [phone] Utilization Review Coordinator: Harley Borjas MD #### CDP, TSH, CP #### [facility] [address] [place] [address] [place] [place] [phone] Utilization Review Coordinator: Libby Bah MD Microalbumin conc. <12 Normal 0-20 [facility] Comment on above: Performed By: #### F EBC, VD25, URNMAB, B12FOL, LIPR #### [address] [phone] Utilization Review Coordinator: Harley Borjas MD #### CDP, TSH, CP #### [facility] [address] [place] [address] Utilization Review Coordinator: Libby Bah MD Thyroid Stim. Horm.on 2023 Thyroid Stim. Horm. 1.83 uIU/mL Normal 0.30-5.00 [facility] Comment on above: Performed By: #### F EBC, VD25, URNMAB, B12FOL, LIPR #### [address] [place], [place] [phone] Utilization Review Coordinator: Harley Borjas MD #### CARSON HELMS, CP #### [address] [place] [address] Utilization Review Coordinator: Libby Bah MD Vitamin D 25 OHon 11-09-2023 Vitamin D 25 [place] 20.9 ng/mL Low 30.0-100.0 [facility] Comment on above: Result Comment: Reference Range: Vitamin D status Range Deficiency <20 ng/mL Mild Deficiency 20-30 ng/mL Sufficiency 30-100 ng/mL Toxicity >100 ng/mL Performed By: #### F EBC, VD25, URNMAB, B12FOL, LIPR #### [facility] [address] [place], [place] [phone] Utilization Review Coordinator: Harley Borjas MD #### CARSON HELMS, CP #### [address] [place] [address] Utilization Review Coordinator: Libby Bah MD CBC with Auto Differentialon 10-20-2022 Basophils (Bld) [#/Vol] 0.04 10*3/uL [facility] Basophils/100 WBC (Bld) 0 % 0 - 2 % [facility] Eosinophils (Bld) [#/Vol] 0.26 10*3/uL [facility] Eosinophils/100 WBC (Bld) 3 % 1 - 4 % [facility] Erythrocyte distribution width (RBC) [Ratio] 15.0 % High 11.8 - 14.4 % [facility] Hematocrit (Bld) [Volume fraction] 37.7 % 36.3 - 47.1 % [facility] Hemoglobin (Bld) [Mass/Vol] 11.9 g/dL 11.9 - 15.1 g/dL [facility] Immature granulocytes (Bld) [#/Vol] 0.06 10*3/uL [facility] Immature granulocytes/100 WBC (Bld) 1 % High 0 [facility] Interpretation and review of laboratory results Abnormal [facility] Lymphocytes/100 WBC (Bld) 26 % 24 - 43 % [facility] Lymphocytes/100 WBC (Bld) 2.66 % [facility] MCH (RBC) [Entitic mass] 26.0 pg 25.2 - 33.5 pg [facility] MCHC (RBC) [Mass/Vol] 31.6 g/dL 28.4 - 34.8 g/dL [facility] MCV (RBC) [Entitic vol] 82.3 fL Low 82.6 - 102.9 fL [facility] Monocytes/100 WBC (Bld) 8 % 3 - 12 % [facility] Monocytes/100 WBC (Bld) 0.76 % [facility] Neutrophils/100 WBC (Bld) 63 % 36 - 65 % [facility] Nucleated RBC/100 WBC (Bld) [Ratio] 0.0 % 0.0 per 100 WBC [facility] Platelet mean volume (Bld) [Entitic vol] 10.2 fL 8.1 - 13.5 fL [facility] Platelets (Bld) [#/Vol] 418 10*3/uL [facility] RBC (Bld) [#/Vol] 4.58 10*6/uL 3.95 - 5.1 1 m/uL [facility] Segmented neutrophils/100 WBC (Bld) 6.29 % [facility] WBC other (Bld) [#/Vol] 10.1 [facility] Reticulocyteson 10-20-2022 Immature reticulocytes/Total reticulocytes (Bld) 13.3 % 2.7 - 18.3 % [facility] Interpretation and review of laboratory results Abnormal [facility] Retic Hemoglobin 27.8 pg Low 28.2 - 35.7 pg [facility] Reticulocytes (Bld) [#/Vol] 0.076 10*3/uL [facility] Reticulocytes/100 RBC (Bld) 1.7 % 0.5 - 1.9 % [facility] CBC with Auto Differentialon 08-04-2022 Absolute Eos # 0.22 [facility] Absolute Immature Granulocyte 0.05 [facility] Absolute Lymph # 3.10 [facility] Absolute [place] # 0.71 [facility] Basophils (Bld) [#/Vol] 0.06 10*3/uL [facility] Basophils/100 WBC (Bld) 1 % 0 - 2 % [facility] Eosinophils/100 WBC (Bld) 2 % 1 - 4 % [facility] Hematocrit (Bld) [Volume fraction] 39.5 % 36.3 - 47.1 % [facility] Hemoglobin (Bld) [Mass/Vol] 12.4 g/dL 11.9 - 15.1 g/dL [facility] Immature granulocytes/100 WBC (Bld) 1 % High 0 [facility] Interpretation and review of laboratory results Abnormal [facility] Lymphocytes/100 WBC (Bld) 33 % 24 - 43 % [facility] MCH (RBC) [Entitic mass] 25.9 pg 25.2 - 33.5 pg [facility] MCHC (RBC) [Mass/Vol] 31.4 g/dL 28.4 - 34.8 g/dL [facility] MCV (RBC) [Entitic vol] 82.6 fL 82.6 - 102.9 fL [facility] Monocytes/100 WBC (Bld) 8 % 3 - 12 % [facility] NRBC Automated 0.0 0.0 per 100 WBC [facility] Platelet distribution width (Bld) [Ratio] 14.7 % High 11.8 - 14.4 % [facility] Platelet mean volume (Bld) [Entitic vol] 10.2 fL 8.1 - 13.5 fL [facility] Platelets (Bld) [#/Vol] 378 10*3/uL [facility] RBC (Bld) [#/Vol] 4.78 10*6/uL 3.95 - 5.1 1 m/uL [facility] Segmented neutrophils/100 WBC (Bld) 55 % 36 - 65 % [facility] Segs Absolute 5.23 [facility] WBC (Bld) [#/Vol] 9.4 10*3/uL [facility] Comprehensive Metabolic Pane deven 08-04-2022 Albumin [Mass/Vol] 4.2 g/dL 3.5 - 5.2 g/dL [facility] Albumin/Globulin [Mass ratio] 1.1 {ratio} 1.0 - 2.5 [facility] ALP [Catalytic activity/Vol] 104 U/L 35 - 104 U/L [facility] ALT [Catalytic activity/Vol] 22 U/L 5 - 33 U/L [facility] Anion gap [Moles/Vol] 12 mmol/L 9 - 17 mmol/L [facility] AST [Catalytic activity/Vol] 17 U/L NINF - 32 U/L [facility] Bilirubin [Mass/Vol] 0.4 mg/dL 0.3 - 1.2 mg/dL [facility] Calcium [Mass/Vol] 10.1 mg/dL 8.6 - 10. 4 mg/dL [facility] Chloride [Moles/Vol] 101 mmol/L 98 - 107 mmol/L [facility] CO2 [Moles/Vol] 26 mmol/L 20 - 31 mmol/L [facility] Creatinine [Mass/Vol] 0.67 mg/dL 0.50 - 0.90 mg/dL [facility] GFR/1.73 sq M.predicted MDRD (S/P/Bld) [Vol rate/Area] - PINF [facility] Comment on above: These results are not intended for use [...] following therapy that affects renal tubular secretion. Glucose [Mass/Vol] 111 mg/dL High 70 - 99 mg/dL [facility] Interpretation and review of laboratory results Abnormal [facility] Potassium [Moles/Vol] 4.0 mmol/L 3.7 - 5.3 mmol/L [facility] Protein [Mass/Vol] 8.2 g/dL 6.4 - 8.3 g/dL [facility] Sodium [Moles/Vol] 139 mmol/L 135 - 144 mmol/L [facility] Urea nitrogen [Mass/Vol] 15 mg/dL 6 - 20 mg/dL [facility] Urea nitrogen/Creatinine (Bld) [Mass ratio] 22 High 9 - 20 [facility] Lipid Panelon 08-04-2022 Cholesterol [Mass/Vol] 136 mg/dL NINF - 200 mg/dL [facility] Comment on above: Cholesterol Guidelines: <200 Desirable 200-240 Borderline >240 Undesirable Cholesterol in HDL [Mass/Vol] 43 mg/dL 40 - PINF mg/dL [facility] Comment on above: HDL Guidelines: <40 Undesirable 40-59 Borderline >59 Desirable Cholesterol in LDL [Mass/Vol] 74 mg/dL 0 - 130 mg/dL [facility] Comment on above: LDL Guidelines: <100 Desirable 100-129 Near to/above Desirable 130-159 Borderline >159 Undesirable Direct (measured) LDL and calculated LDL are not interchangeable tests. Cholesterol.total/Ch olesterol in HDL [Mass ratio] 3.2 {ratio} NINF - 5 [facility] Triglyceride [Mass/Vol] 95 mg/dL NINF - 150 mg/dL [facility] Comment on above: Triglyceride Guidelines: <150 Desirable 150-199 Borderline 200-499 High >499 Very high Based on AHA Guidelines for fasting triglyceride, January 2012. [facility] Microalbumin, Uron 3 Albumin/Creatinine DL <= 20 mg/L (24H U) [Mass ratio] mg/L NINF - 21 mg/L [facility] Albumin/Creatinine DL <= 20 mg/L (U) [Ratio] Can not be calculated NINF [facility] Creatinine [Mass/Vol] 25.2 mg/dL Low 28.0 - 217.0 mg/dL [facility] Interpretation and review of laboratory results Abnormal [facility] No Panel Informationon 08-04 [facility] TSHon 08-04-2022 TSH Qn 1.30 m[IU]/L [facility] Vitamin B12 & Folateon 08-04 Cobalamin (Vitamin B12) [Mass/Vol] 303 pg/mL 232 - 1245 pg/mL [facility] Folate [Mass/Vol] 14.7 ng/mL 4.8 - PINF ng/mL [facility] Vitamin D 25 Hydroxyon 08-04 25-hydroxyvitamin D3 [Mass/Vol] 18.7 ng/mL Low 29.9 - PINF ng/mL [facility] Comment on above: Reference Range: Vitamin D status Range Deficiency <20 ng/mL Mild Deficiency 20-30 ng/mL Sufficiency 30-100 ng/mL Toxicity >100 ng/mL Interpretation and review of laboratory results Abnormal [facility] A1C HEMOGLOBINon 07-22-2022 HbA1c (Bld) [Mass fraction] 5.9 % [employer] Other HbA1c (Bld) [Mass fraction]o n 07-22-2022 A1C HEMOGLOBIN [employer] Other XR DEXA BONE DENSITYon 03-17 XR DEXA BONE DENSITY EXAMINATION: XR DEX A BONE DENSITY, 03/17/2022 10:55 AM EST HISTORY: Screening for osteoporosis COMPARISON: 2020 TECHNIQUE: Dual-energy X-ray absorptiometry (DEXA) bone density study performed for the axial skeleton. FINDINGS: Bone mineral density AP spine L1-L4 measures 1.302 g/sq cm. T score 1.0. WHO classification: Normal. Lowest bone mineral density right femoral neck measures 0.960 g/sq cm. T score -0.6. WHO classification: Normal IMPRESSION: Normal bone mineral density. Low fracture risk Electronically authenticated by: LIBBY CARDOZA Date: 2022-03-17 17:50 Normal [facility] A1C HEMOGLOBINon 03-10-2022 HbA1c (Bld) [Mass fraction] 5.8 % [employer] Other HbA1c (Bld) [Mass fraction]o n 03-10-2022 A1C HEMOGLOBIN [employer] Other MG MAMM SCREEN 3D AMELIA CADon 10-15-2021 MG MAMM SCREEN 3D AMELIA CAD Patient: SONI PERLA Exam Date: 10/15/2021 : 1965 Gender:F Ordering : FABIOLA KAUR Admission #: [id number] Family : Order #: [id number] CLICK HERE TO VIEW EXAM RADIOLOGY REPORT PROCEDURE: MAMMOGRAM SCREENING 3D BILATERAL CAD COMPARISON: MG MAMM RT DIAG W CAD, 03/12/2020. MG MAMM SCREEN 3D AMELIA CAD, 09/25/2020. INDICATIONS: Screening mammography Calculator Name NCI Breast Cancer Risk Assessment Tool 5 Year Breast Cancer Risk 0.90% Lifetime Breast Cancer Risk 5.70% Personal Breast Cancer No Personal Ovarian Cancer No Treatments None Family Cancers None LOCATION: [facility] BREAST COMPOSITION: Scattered areas fibroglandular density. FINDINGS: DIAGNOSTIC CATEGORY 1--NEGATIVE. NO CHANGE FROM COMPARISON ASSESSMENT. Scattered benign-appearing calcifications are present. RIGHT BREAST: No significant suspicious finding. LEFT BREAST: No significant suspicious finding. RECOMMENDATIONS: ROUTINE MAMMOGRAM AND CLINICAL EVALUATION IN 12 MONTHS. PLEASE NOTE: A NORMAL MAMMOGRAM DOES NOT EXCLUDE THE POSSIBILITY OF BREAST CANCER. A CLINICALLY SUSPICIOUS PALPABLE LUMP SHOULD BE BIOPSIED. Dictated by: Libby Cardoza MD on 10/15/2021 at 12:34 Approved by: Libby Cardoza MD on 10/15/2021 at 12:36 Normal [facility] A1C HEMOGLOBINon 10-08-2021 HbA1c (Bld) [Mass fraction] 6.0 % [employer] Other HbA1c (Bld) [Mass fraction]o n 10-08-2021 A1C HEMOGLOBIN [facility] [employer] Other CBC with Auto Differentialon 07-08-2021 Absolute Eos # 0.17 [employer] [facility] th Absolute Immature Granulocyte 0.04 [facility] Absolute Lymph # 2.69 [employer] [facility] Absolute [place] # 0.62 [employer] a lth Basophils (Bld) [#/Vol] 0.08 10*3/uL [facility] Basophils/100 WBC (Bld) 1 % 0 - 2 % [employer] [facility] Eosinophils/100 WBC (Bld) 2 % 1 - 4 % [employer] [facility] Hematocrit (Bld) [Volume fraction] 41.2 % 36.3 - 47.1 % [employer] [facility] Hemoglobin.gastroint estinal spec 1 Ql (Stl) 12.5 g/dL 11.9 - 15.1 g/dL [facility] Immature granulocytes/100 WBC (Bld) 1 % High 0 [facility] Interpretation and review of laboratory results Abnormal [facility] Lymphocytes/100 WBC (Bld) 31 % 24 - 43 % [facility] MCH (RBC) [Entitic mass] 25.4 pg 25.2 - 33.5 pg [facility] MCHC (RBC) [Mass/Vol] 30.3 g/dL 28.4 - 34.8 g/dL [facility] MCV (RBC) [Entitic vol] 83.6 fL 82.6 - 102.9 fL [facility] Monocytes/100 WBC (Bld) 7 % 3 - 12 % [facility] NRBC Automated 0.0 0.0 per 100 WBC [facility] Platelet distribution width (Bld) [Ratio] 14.6 % High 11.8 - 14.4 % [facility] Platelet mean volume (Bld) [Entitic vol] 10.3 fL 8.1 - 13.5 fL [facility] Platelets (Bld) [#/Vol] 371 10*3/uL [facility] RBC (Bld) [#/Vol] 4.93 10*6/uL 3.95 - 5.1 1 m/uL [facility] Segmented neutrophils/100 WBC (Bld) 58 % 36 - 65 % [facility]s [facility] [#/Vol] 8.8 10*3/uL [facility] Comprehensive Metabolic Pane deven 07-08-2021 Albumin [Mass/Vol] 4.3 g/dL 3.5 - 5.2 g/dL [facility] Albumin/Globulin [Mass ratio] 1.2 {ratio} [facility] ALP (Bld) [Catalytic activity/Vol] 102 U/L 35 - 104 U/L [facility] ALT [Catalytic activity/Vol] 24 U/L 5 - 33 U/L [facility] Anion gap [Moles/Vol] 11 mmol/L 9 - 17 mmol/L [facility] AST [Catalytic activity/Vol] 18 U/L <32 [facility] Bilirubin [Mass/Vol] 0.39 mg/dL 0.3 - 1.2 mg/dL [facility] Calcium [Mass/Vol] 9.9 mg/dL 8.6 - 10. 4 mg/dL [facility] Chloride [Moles/Vol] 99 mmol/L 98 - 107 mmol/L [facility] CO2 [Moles/Vol] 27 mmol/L 20 - 31 mmol/L [facility] Creatinine [Mass/Vol] 0.61 mg/dL 0.50 - 0.90 mg/dL [facility] Free PSA/Total PSA [Mass fraction] 8.0 g/dL 6.4 - 8.3 g/dL [facility] GFR >60 >60 mL/min [facility] GFR Non- >60 >60 mL/min [facility] Glucose [Mass/Vol] 107 mg/dL High 70 - 99 mg/dL [facility] Interpretation and review of laboratory results Abnormal [facility] Potassium [Moles/Vol] 3.8 mmol/L 3.7 - 5.3 mmol/L [facility] Sodium [Moles/Vol] 137 mmol/L 135 - 144 mmol/L [facility] Urea nitrogen (BldV) [Mass/Vol] 17 mg/dL 6 - 20 mg/dL [facility] Urea nitrogen/Creatinine (Bld) [Mass ratio] 28 High [facility] Laboratory - Chemistry and C hemistry - challengeon 07-08-2021 GFR/1.73 sq M.predicted MDRD (S/P/Bld) [Vol rate/Area] [facility] Comment on above: Average GFR for 50-5 9 years old: 93 mL/min/1.73sq m Chronic Kidney Disease: <60 mL/min/1.73sq m Kidney failure: <15 mL/min/1.73sq m eGFR calculated using average adult body mass. Additional eGFR calculator available at: http://[email or web address].GazeHawk/multiple_crcl_2012.htm Stage 1: Some kidney damage normal GFR Stage 2: Mild kidney damage GFR 60-89 Stage 3: Moderate kidney damage GFR 30-59 Stage 4: Severe kidney damage GFR 15-29 Stage 5: Severe kidney damage GFR <15 ESRD - chronic treatment by dialysis or transplant Lipid Panelon 07-08-2021 Cholesterol [Mass/Vol] 147 mg/dL <200 [facility] Comment on above: Cholesterol Guidelines: <200 Desirable 200-240 Borderline >240 Undesirable Cholesterol in HDL [Mass/Vol] 46 mg/dL >40 [facility] Comment on above: HDL Guidelines: <40 Undesirable 40-59 Borderline >59 Desirable Cholesterol in LDL [Mass/Vol] 79 mg/dL 0 - 130 mg/dL [facility] Comment on above: LDL Guidelines: <100 Desirable 100-129 Near to/above Desirable 130-159 Borderline >159 Undesirable Direct (measured) LDL and calculated LDL are not interchangeable tests. Cholesterol.total/Ch olesterol in HDL [Mass ratio] 3.2 {ratio} <5 [facility] Tr[facility] [Mass/Vol] 108 mg/dL <150 [facility] Comment on above: Triglyceride Guidelines: <150 Desirable 150-199 Borderline 200-499 High >499 Very high Based on AHA Guidelines for fasting triglyceride, January 2012. [facility] Microalbumin, Uron Albumin/Creatinine DL <= 20 mg/L (24H U) [Mass ratio] <12 <21 mg/L [facility] [facility] Albumin/Creatinine DL <= 20 mg/L (U) [Ratio] Can not be calculated <25 mcg/mg creat [facility] Creatinine [Mass/Vol] 55.9 mg/dL 28.0 - 217.0 mg/dL [facility] No Panel Informationon 07-08 [facility] TSHon 07-08-2021 TSH Qn 2.04 m[IU]/L [facility] Vitamin B12 & Folateon 07-08 Cobalamin (Vitamin B12) [Mass/Vol] 318 pg/mL 232 - 1245 pg/mL [facility] Folate 11.4 ng/mL >4.8 [facility] [employer] A1C HEMOGLOBINon 06-04-2021 HbA1c (Bld) [Mass fraction] 6.2 % [employer] Other HbA1c (Bld) [Mass fraction]o n 06-04-2021 A1C HEMOGLOBIN [employer] Other A1C HEMOGLOBINon 01-14-2021 HbA1c (Bld) [Mass fraction] 5.9 % [employer] Other HbA1c (Bld) [Mass fraction]o n 01-14-2021 A1C HEMOGLOBIN [employer] Other CBC Auto Differentialon 06-04 Basophils (Bld) [#/Vol] 0.07 10*3/uL [employer] [facility] Phone: Basophils/100 WBC (Bld) 1 % 0 - 2 % [employer] [facility] Phone: Differential Type NOT REPORTED [facility] [facility] Phone: Eosinophils (Bld) [#/Vol] 0.32 10*3/uL [employer] [facility] Phone: Eosinophils/100 WBC (Bld) 4 % 1 - 4 % [employer] [facility] Phone: Erythrocyte distribution width (RBC) [Ratio] 14.6 % High 11.8 - 14.4 % [employer] [facility] Phone: Hematocrit (Bld) [Volume fraction] 40.2 % 36.3 - 47.1 % [employer] [facility] Phone: Hemoglobin (Bld) [Mass/Vol] 12.0 g/dL 11.9 - 15.1 g/dL [employer] [facility] Phone: Immature granulocytes (Bld) [#/Vol] 1 % High 0 [employer] [facility] Phone: Immature granulocytes (Bld) [#/Vol] 0.06 10*3/uL [facility] [facility] Phone: Interpretation and review of laboratory results Abnormal [employer] [facility] Phone: Lymphocytes (Bld) [#/Vol] 3.10 10*3/uL [employer] [facility] Phone: Lymphocytes/100 WBC (Bld) 34 % 24 - 43 % [employer] [facility] Phone: MCH (RBC) [Entitic mass] 25.6 pg 25.2 - 33.5 pg [employer] [facility] Phone: MCHC (RBC) [Mass/Vol] 29.9 g/dL 28.4 - 34.8 g/dL [employer] [facility] Phone: MCV (RBC) [Entitic vol] 85.9 fL 82.6 - 102.9 fL [employer] Work Phone: Monocytes (Bld) [#/Vol] 0.82 10*3/uL [facility] Work Phone: Monocytes/100 WBC (Bld) 9 % 3 - 12 % [facility] Work Phone: Platelet mean volume (Bld) [Entitic vol] 9.6 fL 8.1 - 13.5 fL [employer] Work Phone: Platelets (Bld) [#/Vol] 357 10*3/uL [employer] Work Phone: Platelets (Bld) [#/Vol] NOT REPORTED [facility] Phone: RBC (Bld) [#/Vol] 4.68 10*6/uL 3.95 - 5.1 1 m/uL [employer] Work Phone: RBC morphology finding Nom (Bld) NOT REPORTED [facility] [facility] Phone: Segmented neutrophils/100 WBC (Bld) 51 % 36 - 65 % [facility] [facility] Phone: Segs Absolute 4.[address] [employer] [facility] Work Phone: WBC (Bld) [#/Vol] 9.0 10*3/uL [facility] Work Phone: WBC (Bld) [#/Vol] 0.0 10*3/uL 0.0 per 100 WBC [facility] Work Phone: WBC Morphology NOT REPORTED [employer] [facility] Work Phone: CBC Auto Differentialon 05-08 Basophils (Bld) [#/Vol] 0.06 10*3/uL [facility] Phone: Basophils/100 WBC (Bld) 1 % 0 - 2 % [facility] Work Phone: Differential Type NOT REPORTED [employer] [facility] Phone: Eosinophils (Bld) [#/Vol] 0.20 10*3/uL [facility] [facility] Phone: Eosinophils/100 WBC (Bld) 2 % 1 - 4 % [employer] [facility] Phone: Erythrocyte distribution width (RBC) [Ratio] 14.5 % High 11.8 - 14.4 % [employer] [facility] Phone: Hematocrit (Bld) [Volume fraction] 38.5 % 36.3 - 47.1 % [employer] [facility] Phone: Hemoglobin (Bld) [Mass/Vol] 11.9 g/dL 11.9 - 15.1 g/dL [facility] Phone: Immature granulocytes (Bld) [#/Vol] 0.06 10*3/uL [employer] [facility] Phone: Immature granulocytes (Bld) [#/Vol] 1 % High 0 [facility] Phone: Interpretation and review of laboratory results Abnormal [facility] Phone: Lymphocytes (Bld) [#/Vol] 2.80 10*3/uL [employer] [facility] Phone: Lymphocytes/100 WBC (Bld) 32 % 24 - 43 % [employer] [facility] Phone: MCH (RBC) [Entitic mass] 26.5 pg 25.2 - 33.5 pg [employer] [facility] Phone: MCHC (RBC) [Mass/Vol] 30.9 g/dL 28.4 - 34.8 g/dL [employer] [facility] Phone: MCV (RBC) [Entitic vol] 85.7 fL 82.6 - 102.9 fL [employer] [facility] Phone: Monocytes (Bld) [#/Vol] 0.63 10*3/uL [employer] [facility] Phone: Monocytes/100 WBC (Bld) 7 % 3 - 12 % [facility] [employer] Work Phone: Platelet mean volume (Bld) [Entitic vol] 10.0 fL 8.1 - 13.5 fL [facility] [employer] Work Phone: Platelets (Bld) [#/Vol] 347 10*3/uL [facility] [employer] Work Phone: Platelets (Bld) [#/Vol] NOT REPORTED [facility] [employer] Work Phone: RBC (Bld) [#/Vol] 4.49 10*6/uL 3.95 - 5.1 1 m/uL [facility] [employer] Work Phone: RBC morphology finding Nom (Bld) NOT REPORTED [facility] [employer] Work Phone: Segmented neutrophils/100 WBC (Bld) 57 % 36 - 65 % [facility] [employer] Work Phone: Segs Absolute 5.06 [facility] Work Phone: WBC (Bld) [#/Vol] 8.8 10*3/uL [facility] [employer] Work Phone: WBC (Bld) [#/Vol] 0.0 10*3/uL 0.0 per 100 WBC M [facility] [employer] Work Phone: WBC Morphology NOT REPORTED [facility] Work Phone: Comprehensive Metabolic Pane deven 05-29-2020 Albumin [Mass/Vol] 3.9 g/dL 3.5 - 5.2 g/dL [facility] [employer] Work Phone: Albumin/Globulin [Mass ratio] 1.0 {ratio} [facility] [employer] Work Phone: ALP [Catalytic activity/Vol] 92 U/L 35 - 104 U/L [facility] [employer] Work Phone: ALT [Catalytic activity/Vol] 40 U/L High 5 - 33 U/L [facility] [employer] Work Phone: Anion gap [Moles/Vol] 10 mmol/L 9 - 17 mmol/L [facility] [employer] Phone: AST [Catalytic activity/Vol] 29 U/L <32 [facility] [employer] Phone: Bilirubin Ql (U) 0.38 mg/dL 0.3 - 1.2 mg/dL [facility] [employer] Work Phone: Bun/Cre Ratio 16 [facility] Work Phone: Calcium [Mass/Vol] 9.6 mg/dL 8.6 - 10. 4 mg/dL [facility] [employer] Phone: Chloride [Moles/Vol] 101 mmol/L 98 - 107 mmol/L [facility] [employer] Phone: CO2 [Moles/Vol] 26 mmol/L 20 - 31 mmol/L [facility] [employer] Phone: Creatinine [Mass/Vol] 0.67 mg/dL 0.5 - 0.9 mg/dL [facility] [employer] Phone: GFR >60 >60 mL/min [facility] [employer] Phone: GFR Non- >60 >60 mL/min [facility] [employer] Phone: Glucose [Mass/Vol] 107 mg/dL High 70 - 99 mg/dL [facility] [employer] Work Phone: Interpretation and review of laboratory results Abnormal [facility] [employer] Work Phone: Potassium [Moles/Vol] 4.3 mmol/L 3.7 - 5.3 mmol/L [facility] [employer] Phone: Protein [Mass/Vol] 7.7 g/dL 6.4 - 8.3 g/dL [facility] [employer] Work Phone: Sodium [Moles/Vol] 137 mmol/L 135 - 144 mmol/L [facility] [employer] Phone: Urea nitrogen [Mass/Vol] 11 mg/dL 6 - 20 mg/dL [facility] Phone: Lipid Panelon 05-29-2020 Cholesterol [Mass/Vol] 138 mg/dL <200 [facility] Phone: Comment on above: Cholesterol Guidelines: <200 Desirable 200-240 Borderline >240 Undesirable Cholesterol in HDL [Mass/Vol] 46 mg/dL >40 [facility] Phone: Comment on above: HDL Guidelines: <40 Undesirable 40-59 Borderline >59 Desirable Cholesterol in LDL [Mass/Vol] 75 mg/dL 0 - 130 mg/dL [facility] Phone: Comment on above: LDL Guidelines: <100 Desirable 100-129 Near to/above Desirable 130-159 Borderline >159 Undesirable Direct (measured) LDL and calculated LDL are not interchangeable tests. Cholesterol in VLDL [Mass/Vol] NOT REPORTED 1 - 30 mg/dL [facility] Phone: Cholesterol.total/Ch olesterol in HDL [Mass ratio] 3 {ratio} <5 [facility] Phone: Triglyceride [Mass/Vol] 86 mg/dL <150 [facility] Phone: Comment on above: Triglyceride Guidelines: <150 Desirable 150-199 Borderline 200-499 High >499 Very high Based on AHA Guidelines for fasting triglyceride, January 2012. Metabolic Panelon 05-29-2020 GFR/1.73 sq M predicted among non-blacks MDRD (S/P/Bld) [Vol rate/Area] [facility] [facility] Phone: Comment on above: Stage 1: Some kidney damage normal GFR Stage 2: Mild kidney damage GFR 60-89 Stage 3: Moderate kidney damage GFR 30-59 Stage 4: Severe kidney damage GFR 15-29 Stage 5: Severe kidney damage GFR <15 ESRD - chronic treatment by dialysis or transplant Average GFR for 50-5 9 years old: 93 mL/min/1.73sq m Chronic Kidney Disease: <60 mL/min/1.73sq m Kidney failure: <15 mL/min/1.73sq m eGFR calculated using average adult body mass. Additional eGFR calculator available at: http://www.Volumental/multiple_crcl_2011.htm Microalbumin, Uron Albumin/Creatinine DL <= 20 mg/L (24H U) [Mass ratio] <12 <21 mg/L [facility] Phone: Albumin/Creatinine DL <= 20 mg/L (U) [Ratio] CANNOT BE CALCULATED <25 mcg/mg creat [facility] Phone: Creatinine [Mass/Vol] 37.7 mg/dL 28 - 217 mg/dL [facility] Phone: TSH without Reflexon 021 TSH Qn 2.28 m[IU]/L [facility] Phone: Vital Signs Date Time Vital Sign Value Performing Clinician Facility 09-06-2024 10:17-0400 Body height 162.6 cm Mth 1 [facility] [employer] 09-06-2024 10:17-0400 Body mass index (BMI) [Ratio] 32.43 kg/m2 Mth 1 [facility] [employer] 09-06-2024 10:17-0400 Body weight 85.73 kg Mth 1 [facility] 02-23-2024 09:13-0500 Body height 162.56 cm [facility] 02-23-2024 09:13-0500 Body mass index (BMI) [Ratio] 32.1 kg/m2 [facility] 02-23-2024 09:13-0500 Body weight 85.04 kg [facility] 02-23-2024 09:13-0500 Diastolic blood pressure 60 mm[Hg] [facility] 02-23-2024 09:13-0500 Heart rate 92 /min [facility] 02-23-2024 09:13-0500 Respiratory rate 18 /min [facility] 02-23-2024 09:13-0500 SaO2% (BldA) [Mass fraction] 98 % [facility] 02-23-2024 09:13-0500 Systolic blood pressure 122 mm[Hg] [facility] 11-02-2023 10:49-0400 Body height 162.56 cm [facility] 11-02-2023 10:49-0400 Body mass index (BMI) [Ratio] 32.7 kg/m2 [facility] 11-02-2023 10:49-0400 Body weight 86.4 kg [facility] 11-02-2023 10:49-0400 Diastolic blood pressure 70 mm[Hg] [facility] 11-02-2023 10:49-0400 Heart rate 82 /min [facility] 11-02-2023 10:49-0400 Respiratory rate 18 /min [facility] 11-02-2023 10:49-0400 SaO2% (BldA) [Mass fraction] 98 % [facility] 11-02-2023 10:49-0400 Systolic blood pressure 120 mm[Hg] [facility] 12-09-2022 11:45-0400 Body height 162.56 cm Fabiola Kaur Other [facility] [employer] Other 12-09-2022 11:45-0400 Body mass index (BMI) [Ratio] 33.14 kg/m2 Fabiola Kaur Other [facility] [employer] Other 12-09-2022 11:45-0400 Body weight 87.59 kg Fabiola Kaur Other [employer] Other 12-09-2022 11:45-0400 Diastolic blood pressure 70 mm[Hg] Fabiola Kaur Other [employer] Other 12-09-2022 11:45-0400 Respiratory rate 18 /min Fabiola Kaur Other [employer] Other 12-09-2022 11:45-0400 SaO2% (BldA) [Mass fraction] 97 % Fabiola Kaur Other [employer] Other 12-09-2022 11:45-0400 Systolic blood pressure 122 mm[Hg] Fabiola Kaur Other [employer] Other 07-22-2022 10:15-0400 Body height 162.56 cm Fabiola Kaur Other [employer] Other 07-22-2022 10:15-0400 Body mass index (BMI) [Ratio] 32.27 kg/m2 Fabiola Kaur Other [employer] Other 07-22-2022 10:15-0400 Body weight 85.28 kg Fabiola Natasha Other [employer] Other 07-22-2022 10:15-0400 Diastolic blood pressure 70 mm[Hg] Fabiola Kaur Other [employer] Other 07-22-2022 10:15-0400 Respiratory rate 18 /min Fabioal Kaur Other [employer] Other 07-22-2022 10:15-0400 SaO2% (BldA) [Mass fraction] 98 % Fabiola Kaur Other [employer] Other 07-22-2022 10:15-0400 Systolic blood pressure 128 mm[Hg] Fabiola Kaur Other [employer] Other 03-10-2022 12:00-0500 Body height 162.56 cm Fabiola Kaur Other [employer] Other 03-10-2022 12:00-0500 Body mass index (BMI) [Ratio] 32.4 kg/m2 Fabiola Kaur Other [employer] Other 03-10-2022 12:00-0500 Body weight 85.64 kg Fabiola Natasha Other [employer] Other 03-10-2022 12:00-0500 Diastolic blood pressure 70 mm[Hg] Fabiola Natasha Other [employer] Other 03-10-2022 12:00-0500 Respiratory rate 18 /min Fabiola Lorenzanazuleyka Other [employer] Other 03-10-2022 12:00-0500 SaO2% (BldA) [Mass fraction] 99 % Fabiola Lorenzanazuleyka Other [employer] Other 03-10-2022 12:00-0500 Systolic blood pressure 120 mm[Hg] Fabiola Natasha Other [employer] Other 10-08-2021 10:00-0400 Body height 162.56 cm Fabiola Lorenzanazuleyka Other [employer] Other 10-08-2021 10:00-0400 Body mass index (BMI) [Ratio] 31.05 kg/m2 Fabiola Natasha Other [employer] Other 10-08-2021 10:00-0400 Body temperature 96.9 [degF] Fabiola Natasha Other [employer] Other 10-08-2021 10:00-0400 Body weight 82.06 kg Fabiola Natasha Other [employer] Other 07-05-2022 10:00-0400 Diastolic blood pressure 80 mm[Hg] Fabiola Kaur Other [employer] Other 10-08-2021 10:00-0400 Respiratory rate 18 /min Fabiola Natasha Other [employer] Other 10-08-2021 10:00-0400 SaO2% (BldA) [Mass fraction] 98 % Fabiola Natasha Other [employer] Other 10-08-2021 10:00-0400 Systolic blood pressure 128 mm[Hg] Fabiola Kaur Other [employer] Other 06-04-2021 10:30-0500 Body height 162.56 cm Fabiola Kaur Other [employer] Other 06-04-2021 10:30-0500 Body mass index (BMI) [Ratio] 31.03 kg/m2 Fabiola Natasha Other [employer] Other 06-04-2021 10:30-0500 Body temperature 96.9 [degF] Fabiola Kaur Other [employer] Other 06-04-2021 10:30-0500 Body weight 82.01 kg Fabiola Kaur Other [employer] Other 06-04-2021 10:30-0500 Diastolic blood pressure 70 mm[Hg] Fabiola Kaur Other [employer] Other 06-04-2021 10:30-0500 Respiratory rate 18 /min Fabiola Kaur Other [employer] Other 06-04-2021 10:30-0500 SaO2% (BldA) [Mass fraction] 98 % Fabiola Kaur Other [employer] Other 06-04-2021 10:30-0500 Systolic blood pressure 118 mm[Hg] Fabiola Kaur Other [employer] Other 01-14-2021 10:15-0400 Body height 162.56 cm Fabiola Natasha Other [employer] Other 01-14-2021 10:15-0400 Body mass index (BMI) [Ratio] 32.03 kg/m2 Fabiola Natasha Other [employer] Other 01-14-2021 10:15-0400 Body temperature 97.6 [degF] Fabiola Kaur Other [employer] Other 01-14-2021 10:15-0400 Body weight 84.64 kg Fabiola Natasha Other [employer] Other 01-14-2021 10:15-0400 Diastolic blood pressure 70 mm[Hg] Fabiola Kaur Other [employer] Other 01-14-2021 10:15-0400 Respiratory rate 18 /min Fabiola Kaur Other [employer] Other 01-14-2021 10:15-0400 SaO2% (BldA) [Mass fraction] 98 % Fabiola Kaur Other [employer] Other 01-14-2021 10:15-0400 Systolic blood pressure 118 mm[Hg] Fabiola Kaur Other [place] [employer] Other Encounters Encounter Date Encounter Type Care Provider Facility Start: 09-06-2024 End: 09-08-2024 [facility] Start: 09-06-2024 End: 09-08-2024 Subsequent hospital visit by physician [address] Non-Invasive Cardiology Comment on above: Edema of lower extre mity; Dyspnea on exertion Start: 02-29-2024 End: 02-29-2024 ambulatory [facility] Start: 02-29-2024 End: 02-29-2024 Subsequent hospital visit by physician Fabiola Rutledge NP Work Phone: [facility] Start: 02-23-2024 End: 02-23-2024 ambulatory [facility] Work Phone: Start: 02-23-2024 End: 02-23-2024 Patient encounter procedure [facility] Physician [facility] Work Phone: Start: 11-09-2023 End: 11-09-2023 ambulatory [facility] Start: 11-09-2023 End: 11-09-2023 Encounter for general adult medical examination without abnormal findings [facility] NATASHA [facility] Start: 11-02-2023 Physical examination [facility] Start: 11-02-2023 End: 11-02-2023 ambulatory [facility] Work Phone: Start: 11-02-2023 End: 11-02-2023 Encounter for general adult medical examination without abnormal findings [facility] Start: 11-02-2023 End: 11-02-2023 Patient encounter procedure [facility] Physician [facility] Work Phone: Start: 12-09-2022 End: 12-09-2022 ambulatory Fabiola Kaur Other [place] [employer] Other Start: 12-09-2022 Office outpatient vi sit 25 minutes Fabiola Kaur [facility] Start: 12-09-2022 Telephone encounter [facility] Start: 10-20-2022 End: 10-20-2022 Subsequent hospital visit by physician Fabiola Rutledge NP Work Phone: [facility] Start: 08-05-2022 End: 08-05-2022 ambulatory Fabiola Kaur Other [employer] Other Start: 08-05-2022 Telephone encounter [facility]iola Kaur [facility] Start: 08-04-2022 End: 08-04-2022 Subsequent hospital visit by physician Fabiola Rutledge NP Work Phone: [facility] Start: 07-22-2022 End: 07-22-2022 ambulatory Fabiola Kaur Other [employer] Other Start: 07-22-2022 Encounter for genera l adult medical examination without abnormal findings Fabiola Kaur [facility] Start: 07-22-2022 Office outpatient vi sit 25 minutes Fabiola Kaur [facility] Start: 03-17-2022 End: 03-18-2022 ambulatory FABIOLA KAUR Facility:[facility] Start: 03-10-2022 End: 03-10-2022 ambulatory Fabiola Kaur Other [employer] Other Start: 03-10-2022 Office outpatient vi sit 25 minutes Fabiola Kaur [facility] Start: 10-15-2021 End: 10-16-2021 ambulatory FABIOLAYANNICK KAUR Facility:[facility] Start: 10-08-2021 End: 10-08-2021 ambulatory Fabiola Kaur Other [employer] Other Start: 10-08-2021 Office outpatient vi sit 25 minutes Fabiola Kaur [facility] Start: 07-10-2021 End: 07-10-2021 ambulatory Fabiola Kaur Other [employer] Other Start: 07-10-2021 Telephone encounter [facility] Start: 07-08-2021 End: 07-08-2021 Subsequent hospital visit by physician Fabiola Kaur APRN - VALIDATION ANALYST Work Phone: [facility] Start: 06-04-2021 End: 06-04-2021 ambulatory Fabiola Kaur Other [employer] Other Start: 06-04-2021 Encounter for genera l adult medical examination without abnormal findings Fabiola Kaur [facility] Start: 06-04-2021 Office outpatient vi sit 25 minutes Fabiola Kaur [facility] Start: 01-14-2021 Office outpatient vi sit 25 minutes Fabiola Kaur [facility] Start: 06-19-2020 End: 06-19-2020 Subsequent hospital visit by physician Fabiola [facility]LL[facility] Start: 05-29-2020 End: 05-29-2020 Subsequent hospital visit by physician Fabiola GUILLEN Laboratory Procedures Date Procedure Procedure Detail Performing Clinician Start: 09-06-2024 Echo tthrc r-t 2d w/wom-mode compl spec&colr d Ezio Donovan DO Work Phone: Start: 09-06-2024 Basic metabolic pane l calcium total Unknown Provider Result Start: 02-29-2024 Comprehensive metabo lic panel Unknown Provider Result Start: 02-29-2024 Lipid panel Unknown Pr ovider Result Start: 02-29-2024 Urine albumin quantitative Unknown Provider Result Start: 02-29-2024 VITAMIN B12 & FOLATE Un known Provider Result Start: 10-20-2022 Blood count reticulo cyte automated Fabiola Kaur APRN - VALIDATION ANALYST Work Phone: Start: 08-04-2022 Comprehensive metabo lic panel Fabiola Kaur APRN - VALIDATION ANALYST Work Phone: Start: 08-04-2022 Lipid panel Fabiola Hoover aple PAN CLEANER - VALIDATION ANALYST Work Phone: Start: 08-04-2022 Urine albumin quantitative Fabiola Kaur PAN CLEANER - VALIDATION ANALYST Work Phone: Start: 08-04-2022 VITAMIN B12 & FOLATE Je nael Kaur PAN CLEANER - VALIDATION ANALYST Work Phone: Start: 07-08-2021 Comprehensive metabo lic panel Fabiola Kaur PAN CLEANER - VALIDATION ANALYST Work Phone: Start: 07-08-2021 Lipid panel Fabiola Hoover aple PAN CLEANER - VALIDATION ANALYST Work Phone: Start: 07-08-2021 Urine albumin quantitative Fabiola Kaur PAN CLEANER - VALIDATION ANALYST Work Phone: Start: 07-08-2021 VITAMIN B12 & FOLATE Je nnsavita Kapzuleyka PAN CLEANER - VALIDATION ANALYST Work Phone: Start: 06-19-2020 Blood count complete auto&auto difrntl wbc Fabiola Kaur Work Phone: Start: 05-29-2020 Assay of thyroid stimulating hormone tsh Fabiola Kaur Work Phone: Start: 05-29-2020 Blood count complete auto&auto difrntl wbc Fabiola Kaur Work Phone: Start: 05-29-2020 Comprehensive metabo lic panel Fabiola Kaur Work Phone: Start: 05-29-2020 Lipid panel Fabiola cohen Work Phone: Start: 05-29-2020 Urine albumin quantitative Fabiola Kaur Work Phone: Plan of Treatment Date Care Activity Detail Author Start: 12-04-2038 Respiratory Syncytia l Virus (RSV) or age 60 yrs+ (1 - 1-dose 75+ series) Respiratory Syncytial Virus (RSV) or age 60 yrs+ (1 - 1-dose 75+ series) [facility] Start: 02-28-2029 Lipid panel Lipids [facility] Start: 08-05-2027 Lipid panel Lipids [facility] Start: 11-04-2024 Influenza vaccination Flu vacc ine (Season Ended) [facility] Start: 12-06-2023 COVID-19 Vaccine ( season) COVID-19 Vaccine ( season) [facility] Start: 12-06-2023 COVID-19 Vaccine ( season) COVID-19 Vaccine ( season) [facility] Start: 11-05-2023 Influenza vaccination Flu vaccine (# 1) [facility] Start: 11-04-2022 Influenza vaccination B [facility] Start: 2021 Influenza vaccination Flu vacc ine (Season Ended) [facility] Start: 12-06-2019 Influenza vaccination Flu vaccine (# 1) [facility] [employer] Work Phone: Start: 12-04-2013 Pneumococcal 50+ yea rs Vaccine (1 of 1 - PCV) Pneumococcal 50+ years Vaccine (1 of 1 - PCV) [facility] Start: 12-04-2013 Screening for malign ant neoplasm of breast Breast cancer screen [facility] Start: 12-04-2013 Shingles vaccine (1 of 2) Shingles vaccine (1 of 2) [facility] Start: 12-04-2008 Screening for malign ant neoplasm of colon [facility] Start: 2003 Screening for malign ant neoplasm of breast Breast cancer screen [facility] Start: 12-04-1998 Diabetes screen Diabetes screen [facility] Start: 12-04-1993 Screening for malign ant neoplasm of cervix [facility] Start: 12-04-1984 Screening for malign ant neoplasm of cervix Pap smear [facility] Start: 12-04-1982 DTaP/Tdap/Td vaccine (1 - Tdap) DTaP/Tdap/Td vaccine (1 - Tdap) [facility] Start: 12-04-1981 Hepatitis C screening Hepatitis C sc reen [facility] Start: 1979 COVID-19 Vaccine (1) COVID-19 Vaccin e (1) [employer] Work Phone: Start: 12-04-1978 HIV screening HIV screen [facility] Start: 1975 Depression Screen Depression Screen [facility] Start: 12-04-1968 COVID-19 Vaccine (1) COVID-19 Vaccin e (1) [facility] Start: 06-03-1964 COVID-19 Vaccine (#1) COVID-19 Vacci ne (#1) [facility] Comprehensive metabo lic 1999 panel - Serum or Plasma [facility] Comprehensive metabo lic 1999 panel - Serum or Plasma [facility] End: 02-29-2024 Hepatitis C RNA, quantitative, PCR [facility] Comment on above: Once for 1 Occurrenc es starting 02/29/2024 until 02/29/2024 MG Breast - bilatera l Screening [facility] End: 10-20-2022 Path Review, Smear [facility] Work Phone: Comment on above: Once for 1 Occurrenc es starting 10/20/2022 until 10/20/2022 [facility] Immunizations Immunization Date Immunization Notes Care Provider Yuli lindquist 02-18-2016 influenza, seasonal, injectable Fabiola Kaur Other [facility] Payers Date Payer Category Payer Unknown [id number] [id number] 1965 Unknown [id number] 2.16.84 [id number] 1965 Unknown [id number] 2.16.84 [id number] 1965 Unknown [id number] 2.16.8 [id number] 1963 Unknown [id number] 2.16.8 [id number] 1965 Unknown [id number] 2.16.8 [id number] 1965 Unknown [id number] 2.16.8 [id number] 1961 Unknown [id number] Self-pay Self Pay [id number] Social History Date Type Detail Facility Tobacco smoking status IAIS Unknown if ever smoked [facility] Phone: Start: 1965 Sex Assigned At Not on file M [facility] Phone: Tobacco smoking status IAIS Tobacco smoking consumption unknown [facility] Phone: Sex Assigned At [place] [employer] Other Start: 08-09-2019 End: 08-09-2019 Tobacco smoking status IAIS Never smoked tobacco (finding) [facility] Start: 1965 Sex Assigned At Female F [facility] Start: 05-29-2020 End: 02-23-2024 Sex Female (finding) [facility] Medical Equipment Procedure Code Equipment Code Equipment Origin al Text Equipment Identifier [facility] Start: 04-18-2013 Clinical Notes 01-14-2021 to 09-06-2024 Radha Crespo - 09/06/2024 9:30 AM EDT Note Date & Type Note Facility 09-06-2024 History of Presen t illness Narrative Explained policies and procedure of an echocardiogram/Doppler study. [facility] Evaluation note Encounter Date Diagnosis Assessment Notes Dec, Essential (primary) hypertension (ICD-10 - I10) Blood pressure well controlled on Losartan/HCTZ 50/12.5 mg daily and Amlodipine 2.5 mg daily. UTD with lab work. Will continue current treatment plan. Take medication as prescribed, keep follow up appointments, get any testing that's been ordered done in a timely fashion. Do not smoke. Call if any questions or problems. For Hypertension: Patient is advised to work on healthy diet choices and appropriate servings, weight control, regular exercise as directed, and salt avoidance. Monitor blood pressures at home and call if above target. Dec, Type 2 diabetes mellitus without complications (ICD-10 - E11.9) Hgba1c is well controlled with Metformin 1000 mg BID and Actos 15 mg daily. UTD with lab work. Will continue current treatment plan. She is overdue for eye exam, she will call and schedule this as she has been saving up money. Take medication as prescribed, keep follow up appointments, get any testing that's been ordered done in a timely fashion. Do not smoke. Call if any questions or problems.For Diabetes: Patient is advised to work on healthy diet choices and appropriate servings, weight control, regular exercise as directed, and reduce fat intake. Check home blood sugars as directed. Check feet regularly to be sure no sores or numbness are developing. Call if low sugar reactions occur, and be aware that lower sugars may happen with increased exercise. Dec, Mixed hyperlipidemia (ICD-10 - E78.2) Remains on Pravastatin 20 mg daily. UTD with lab work. Will continue current treatment plan. Take medication as prescribed, keep follow up appointments, get any testing that's been ordered done in a timely fashion. Do not smoke. Call if any questions or problems. For Cholesterol: Patient is advised to work on healthy diet choices and appropriate servings, weight control, regular exercise as directed, and reduce fat intake. Dec, BMI 33.0-33.9,adult (ICD-10 - Z68.33) Patient is advised to work on healthy diet choices and appropriate servings, weight control, regular exercise as directed, reduced fat intake, and salt avoidance. Patient voiced understanding of this and agrees to this plan. [facility] Other 05-02-2023 Evaluation note* Encounter Date Diagnosis Assessment Notes Treatment Notes Treatment Clinical Notes August, Vitamin D deficiency (ICD-10 - E55.9) August, Abnormal CBC (ICD-10 - R79.89) [facility] Other 04-18-2023 Evaluation note* Encounter Date Diagnosis Assessment Notes Treatment Notes Treatment Clinical Notes Jul, Essential (primary) hypertension (ICD-10 - I10) Blood pressure well controlled on Losartan/HCTZ 50/12.5 mg daily and Amlodipine 2.5 mg daily. Routine lab work ordered. Will continue current treatment plan pending lab results. Take medication as prescribed, keep follow up appointments, get any testing that's been ordered done in a timely fashion. Do not smoke. Call if any questions or problems. For Hypertension: Patient is advised to work on healthy diet choices and appropriate servings, weight control, regular exercise as directed, and salt avoidance. Monitor blood pressures at home and call if above target. Jul, Well adult exam (ICD-10 - Z00.00) Routine lab work ordered. Call and schedule with eye doctor and dentist. No longer follows with [facility]. UTD with mammograms. Declines colonoscopy or cologuard. Patient is advised to work on healthy diet choices and appropriate servings, weight control, regular exercise as directed, reduced fat intake, and salt avoidance. Patient voiced understanding of this and agrees to this plan. Jul, Type 2 diabetes mellitus without complications (ICD-10 - E11.9) Hgba1c is well controlled with Metformin 1000 mg BID and Actos 15 mg daily. Routine lab work ordered. Will continue current treatment plan pending lab results. She is overdue for eye exam, she will call and schedule this. Take medication as prescribed, keep follow up appointments, get any testing that's been ordered done in a timely fashion. Do not smoke. Call if any questions or problems.For Diabetes: Patient is advised to work on healthy diet choices and appropriate servings, weight control, regular exercise as directed, and reduce fat intake. Check home blood sugars as directed. Check feet regularly to be sure no sores or numbness are developing. Call if low sugar reactions occur, and be aware that lower sugars may happen with increased exercise. Jul, Mixed hyperlipidemia (ICD-10 - E78.2) Remains on Pravastatin 20 mg daily. Routine lab work ordered. Will continue current treatment plan pending lab results. Take medication as prescribed, keep follow up appointments, get any testing that's been ordered done in a timely fashion. Do not smoke. Call if any questions or problems. For Cholesterol: Patient is advised to work on healthy diet choices and appropriate servings, weight control, regular exercise as directed, and reduce fat intake. Jul, BMI 32.0-32.9,adult (ICD-10 - Z68.32) Patient is advised to work on healthy diet choices and appropriate servings, weight control, regular exercise as directed, reduced fat intake, and salt avoidance. Patient voiced understanding of this and agrees to this plan. [facility] Other 2022 Evaluation note* Encounter Date Diagnosis Assessment Notes Treatment Notes Treatment Clinical Notes Mar, Essential (primary) hypertension (ICD-10 - I10) Blood pressure well controlled on Losartan/HCTZ 50/12.5 mg daily and Amlodipine 2.5 mg daily. UTD with lab work. Will continue current treatment plan. Take medication as prescribed, keep follow up appointments, get any testing that's been ordered done in a timely fashion. Do not smoke. Call if any questions or problems. For Hypertension: Patient is advised to work on healthy diet choices and appropriate servings, weight control, regular exercise as directed, and salt avoidance. Monitor blood pressures at home and call if above target. Mar, Type 2 diabetes mellitus without complications (ICD-10 - E11.9) Hgba1c is well controlled with Metformin 1000 mg BID and Actos 15 mg daily. UTD with lab work. Will continue current treatment plan. She is overdue for eye exam, she will call and schedule this. Take medication as prescribed, keep follow up appointments, get any testing that's been ordered done in a timely fashion. Do not smoke. Call if any questions or problems.For Diabetes: Patient is advised to work on healthy diet choices and appropriate servings, weight control, regular exercise as directed, and reduce fat intake. Check home blood sugars as directed. Check feet regularly to be sure no sores or numbness are developing. Call if low sugar reactions occur, and be aware that lower sugars may happen with increased exercise. Mar, Mixed hyperlipidemia (ICD-10 - E78.2) Remains on Pravastatin 20 mg daily. UTD with lab work. Will continue current treatment plan. Take medication as prescribed, keep follow up appointments, get any testing that's been ordered done in a timely fashion. Do not smoke. Call if any questions or problems. For Cholesterol: Patient is advised to work on healthy diet choices and appropriate servings, weight control, regular exercise as directed, and reduce fat intake. Mar, BMI 32.0-32.9,adult (ICD-10 - Z68.32) Patient is advised to work on healthy diet choices and appropriate servings, weight control, regular exercise as directed, reduced fat intake, and salt avoidance. Patient voiced understanding of this and agrees to this plan. Mar, Screening for osteoporosis (ICD-10 - Z13.820) Patient is postmenopausal and therefore at risk for osteoporosis. Risks and benefits of DEXA scan discussed with patient today. She is due for DEXA scan. Patient is interested in getting a DEXA scan today. DEXA scan ordered today. Mar, Post-menopausal (ICD-10 - Z78.0) Patient is postmenopausal and therefore at risk for osteoporosis. Risks and benefits of DEXA scan discussed with patient today. She is due for DEXA scan. Patient is interested in getting a DEXA scan today. DEXA scan ordered today. [facility] Other 07-05-2022 Evaluation note* Encounter Date Diagnosis Assessment Notes Treatment Notes Treatment Clinical Notes Oct, Essential (primary) hypertension (ICD-10 - I10) Blood pressure well controlled on Losartan/HCTZ 50/12.5 mg daily and Amlodipine 2.5 mg daily. UTD with lab work. Will continue current treatment plan. Take medication as prescribed, keep follow up appointments, get any testing that's been ordered done in a timely fashion. Do not smoke. Call if any questions or problems. For Hypertension: Patient is advised to work on healthy diet choices and appropriate servings, weight control, regular exercise as directed, and salt avoidance. Monitor blood pressures at home and call if above target. Oct, Type 2 diabetes mellitus without complications (ICD-10 - E11.9) Hgba1c is well controlled with Metformin 1000 mg BID and Actos 15 mg daily. UTD with lab work. Will continue current treatment plan. Take medication as prescribed, keep follow up appointments, get any testing that's been ordered done in a timely fashion. Do not smoke. Call if any questions or problems.For Diabetes: Patient is advised to work on healthy diet choices and appropriate servings, weight control, regular exercise as directed, and reduce fat intake. Check home blood sugars as directed. Check feet regularly to be sure no sores or numbness are developing. Call if low sugar reactions occur, and be aware that lower sugars may happen with increased exercise. Oct, Mixed hyperlipidemia (ICD-10 - E78.2) Remains on Pravastatin 20 mg daily. UTD with lab work. Will continue current treatment plan. Take medication as prescribed, keep follow up appointments, get any testing that's been ordered done in a timely fashion. Do not smoke. Call if any questions or problems. For Cholesterol: Patient is advised to work on healthy diet choices and appropriate servings, weight control, regular exercise as directed, and reduce fat intake. Oct, BMI 31.0-31.9,adult (ICD-10 - Z68.31) Patient is advised to work on healthy diet choices and appropriate servings, weight control, regular exercise as directed, reduced fat intake, and salt avoidance. Patient voiced understanding of this and agrees to this plan. Oct, Encounter for screening mammogram for malignant neoplasm of breast (ICD-10 - Z12.31) Patient is due for her routine yearly screening mammogram. Screening mammogram ordered today. [facility] Other 03-01-2022 Evaluation note* Encounter Date Diagnosis Assessment Notes Treatment Notes Treatment Clinical Notes Jun, Essential (primary) hypertension (ICD-10 - I10) Blood pressure well controlled on Losartan/HCTZ 50/12.5 mg daily and Amlodipine 2.5 mg daily. Routine lab work ordered. Will continue current treatment plan pending lab results. Take medication as prescribed, keep follow up appointments, get any testing that's been ordered done in a timely fashion. Do not smoke. Call if any questions or problems. For Hypertension: Patient is advised to work on healthy diet choices and appropriate servings, weight control, regular exercise as directed, and salt avoidance. Monitor blood pressures at home and call if above target. Jun, Well adult exam (ICD-10 - Z00.00) Routine lab work ordered today. Follow routinely with eye doctor and dentist. UTD with mammogram and DEXA scan. She declines colonoscopy and cologuard at this time. Patient is advised to work on healthy diet choices and appropriate servings, weight control, regular exercise as directed, reduced fat intake, and salt avoidance. Patient voiced understanding of this and agrees to this plan. Jun, Type 2 diabetes mellitus without complications (ICD-10 - E11.9) Hgba1c is well controlled with Metformin 1000 mg BID and Actos 15 mg daily. Routine lab work ordered. Will continue current treatment plan pending lab results. Take medication as prescribed, keep follow up appointments, get any testing that's been ordered done in a timely fashion. Do not smoke. Call if any questions or problems.For Diabetes: Patient is advised to work on healthy diet choices and appropriate servings, weight control, regular exercise as directed, and reduce fat intake. Check home blood sugars as directed. Check feet regularly to be sure no sores or numbness are developing. Call if low sugar reactions occur, and be aware that lower sugars may happen with increased exercise. Jun, Mixed hyperlipidemia (ICD-10 - E78.2) Remains on Pravastatin 20 mg daily. Routine lab work ordered today. Will continue current treatment plan pending lab results. Take medication as prescribed, keep follow up appointments, get any testing that's been ordered done in a timely fashion. Do not smoke. Call if any questions or problems. For Cholesterol: Patient is advised to work on healthy diet choices and appropriate servings, weight control, regular exercise as directed, and reduce fat intake. Jun, BMI 31.0-31.9,adult (ICD-10 - Z68.31) Patient is advised to work on healthy diet choices and appropriate servings, weight control, regular exercise as directed, reduced fat intake, and salt avoidance. Patient voiced understanding of this and agrees to this plan. [facility] Other 10-11-2021 Evaluation note* Encounter Date Diagnosis Assessment Notes Treatment Notes Treatment Clinical Notes Jan, Type 2 diabetes shanta itus without complications (ICD-10 - E11.9) Hgba1c is well controlled with Metformin 1000 mg BID and Actos 15 mg daily. UTD with lab work. Will continue current treatment plan. Take medication as prescribed, keep follow up appointments, get any testing that's been ordered done in a timely fashion. Do not smoke. Call if any questions or problems.For Diabetes: Patient is advised to work on healthy diet choices and appropriate servings, weight control, regular exercise as directed, and reduce fat intake. Check home blood sugars as directed. Check feet regularly to be sure no sores or numbness are developing. Call if low sugar reactions occur, and be aware that lower sugars may happen with increased exercise. Jan, Essential (primary) hypertension (ICD-10 - I10) Blood pressure well controlled on Losartan/HCTZ 50/12.5 mg daily and Amlodipine 2.5 mg daily. UTD with lab work. Will continue current treatment plan. Take medication as prescribed, keep follow up appointments, get any testing that's been ordered done in a timely fashion. Do not smoke. Call if any questions or problems. For Hypertension: Patient is advised to work on healthy diet choices and appropriate servings, weight control, regular exercise as directed, and salt avoidance. Monitor blood pressures at home and call if above target. Jan, Pure hypercholestero lemia (ICD-10 - E78.0) Remains on Pravastatin 20 mg daily. UTD with lab work. Will continue current treatment plan. Take medication as prescribed, keep follow up appointments, get any testing that's been ordered done in a timely fashion. Do not smoke. Call if any questions or problems. For Cholesterol: Patient is advised to work on healthy diet choices and appropriate servings, weight control, regular exercise as directed, and reduce fat intake. Jan, BMI 32.0-32.9,adult (ICD-10 - Z68.32) Patient is advised to work on healthy diet choices and appropriate servings, weight control, regular exercise as directed, reduced fat intake, and salt avoidance. Patient voiced understanding of this and agrees to this plan. [place] [employer] Other [facility]No [facility] [employer] Other Evaluation note* Diagnosis Onset Date Resolution Status Essential (primary) hypertension acute Mixed hyperlipidemia acute Obesity acute Type 2 diabetes mellitus without complications acute Vitamin D deficiency acute Well adult exam acute [facility] Work Phone: Evaluation note* Diagnosis Onset Date Resolution Status Admit Date Encounter for HCV screening test for low risk patient acute February 222023 9:02am Essential (primary) hypertension acu te February 23, 2024 9:02am Iron deficiency anemia acute No vember 2023 9:02am Mixed hyperlipidemia acute Nove mber 2023 9:02am Screening for human immunodeficiency virus without presence of risk factors acute Kenneth nicol 2023 9:02am Type 2 diabetes mellitus wit hout complications acute February 22, 2 024 9:02am Vitamin D deficiency acute Arminda yoder 2023 9:02am [facility] Work Phone: Evaluation note* Diagnosis Edema of lower extremity Edema Dyspnea on exertion Other dyspnea and respiratory abnormality documented in this encounter [facility] [employer] [facility] N[facility] - Reported* Type Description Date Medical History Diabetes mellitus wi thout mention of complications, type II or unspecified type, uncontrolled Medical History Mixed hyperlipidemia Medical History Essential hypertension Medical History Obesity Medical History Joint pain, shoulder region Medical History Joint pain, shoulder region Medical History Tinea pedis Surgical History Cholecystectomy: laparoscopic Surgical History gangion cyst removal X2 Surgical History tubal ligation 1989 Surgical History bunion sugery in [place] Hospitalization History SEE ABOVE Hospitalization History CHEST TIGHTNESS 11/2017 [facility] Other Reason for visit Narrative* Imaging (Routine) - Closed Specialty Diagnoses / Procedures Referred By Contac t Referred To Contact Cardiology Diagnoses Edema of lower extremity Dyspnea on exertion Procedures Echo (TTE) complete (PRN contrast/bubble/strain/3D) AK ECHO TTHRC R-T 2D W/WOM-MODE COMPL SPEC&COLR D AK TTE W OR WO FOL WCON,DOPPLER Ezio Grimaldo, DO [address] [place] [address] Phone: tel: fax: Referral ID Status Reason Start Date Expiration Date Visits Re quested Visits Authorized [id number] Closed 08/24/2024 08/24/2025 1 1 [facility] Summary Purpose Family History Relationship Condition Age at Onset Recorded Date/T sindy father Unknown grandparent Diabetes mellitus Unknown Unknown grandparent Unknown Diabetes mellitus Unknown mother Diabetes mellitus Unknown Hypertension Unknown Advance Directives Advance Directive Response Recorded Date/ Time Advance Directives No August 09, 2019 9:13am Advance Directive Response Recorded Date/ Time Advance Directives No August 09, 2019 8:13am Chief Complaint and Reason for Visit Chief Complaint wellness Reason for Visit Essential (primary) hypertension Mixed hyperlipidemia Obesity Type 2 diabetes mellitus without complications Vitamin D deficiency Well adult exam Chief Complaint Admit Date 4 month follow uo February 23, 2024 9:02am Reason for Visit Admit Date Encounter for HCV screening test for low risk patient February 23, 2024 9:02am Essential (primary) hypertension Novembe r 2023 9:02am Iron deficiency anemia February 22 9:02am Mixed hyperlipidemia February 23, 2024 9:02am Screening for human immunode ficiency virus without presence of risk factors February 23, 2024 9:02am Type 2 diabetes mellitus without complic ations February 23, 2024 9:02am Vitamin D deficiency February 23, 2024 9:02am Additional Source Comments Care Teams (unrecognized sec tion and content) Tip Scourer Relationship Specialty Start Date End Date Fabiola Kaur APRN - NP [address] [place] [address] PCP - General Nurse Practitioner 05/29/20 Tip Scourer Relationship Specialty Start Date End Date Fabiola Kaur APRN - NP [address] [place] [address] PCP - General Nurse Practitioner 05/29/20 Tip Scourer Relationship Specialty Start Date End Date Fabiola Kaur APRN - NP [address] [place] [address] PCP - General Nurse Practitioner 05/29/20 Team Status: Active Member Role Status Dates Fabiola Kaur DNP Primary Care Provider Active Team Status: Inactive Member Role Status Dates Fabiola Kaur DNP Primary Care Provid er, Attending Provider Active Start: November 02, 2023 End: November 02, 2023 Team Status: Active Member Role Status Dates Ezio Grimaldo DO Primary Care Provider Active Team Status: Inactive Member Role Status Dates Ezio Grimaldo DO Primary Care Provid er, Attending Provider Active Start: February 23, 2024 End: February 23, 2024 Tip Scourer Relationship Specialty Start Date End Date Fabiola Kaur APRN - NP [address] [place] [id number] PCP - General Nurse Practitioner 05/29/20 Tip Scourer Relationship Specialty Start Date End Date Ezio Grimaldo DO [address] [place] [address] PCP - General Family Medicine 09/05/24 Tip Scourer Relationship Specialty Start Date End Date Ezio Grimaldo DO [address] [place] [address] PCP - General Family Medicine 09/05/24 REASON FOR VISIT (unrecogniz ed section and content) 4 month Follow up, [id number] y ear Follow up, hgba1c, lab work and microlab results4 month Follow up, [id number] month follow up, hgba1c, due for dexa, want ordered?wellness, [id number] results4 month Follow up, hgba1c, mammogram due?mammogram results INFORMATION SOURCE (unrecogn ized section and content) DATE CREATED AUTHOR 05/28/2022 [facility] DATE CREATED AUTHOR AUTHOR'S ORGANIZ ATION 09/09/2024 [facility] Goals (unrecognized section and content) Goals may be documented in a n alternate section FOR RECORDS PERTAINING TO PATIENTS WHO ARE OR HAVE BEEN ENROLLED IN A CHEMICAL DEPENDENCY/SUBSTANCEABUSE PROGRAM, SOME INFORMATION MAY BE OMITTED. This clinical summary was aggregated from multiple sources. Caution should be exercised in using it in the provision of clinical care. This summary normalizes information from multiple sources, and as a consequence, information in this document may materially change the coding, format and clinical context of patient data. In addition, data may be omitted in some cases. CLINICAL DECISIONS SHOULD BE BASED ON THE PRIMARY CLINICAL RECORDS. [facility] [employer] provides no warranty or guarantee of the accuracy or completeness of information in this document.
--- NOTE | 2024-10-04 07:45 | PC.NURSE ---
Nursing Note Cardiac Stress Test Reviewed: Medication, allergies and patient history reviewed. Stress Test: [x ] Patient tolerated stress test well. [ ] Patient unable to tolerate walking on treadmill. Switched to Lexiscan stress test. [x ] No chest pain noted per patient [ ] Chest pain that resolved prior to leaving stress lab. [ ] No dyspnea noted. [x ] Dyspnea that resolved prior to leaving stress lab. [x ] Patient left stress lab asymptomatic and hemodynamically stable. [ ] Patient taken to the Emergency Room due to non-resolving symptoms following stress test. [x ] Patient achieved target heart rate. [ ] Patient unable to achieve target heart rate. [ ] Aminophylline administered as reversal agent to Lexiscan (Regadenoson). [ ] Nitro administered. Nursing Comments:Pt had regular stress test. Tolerated well. No CP but had SOB which she states is her normal with any activity and the reason for the test. Pt recovered within 4 minutes rest and left stress lab with no symptoms.
--- NOTE | 2024-10-04 08:07 | XR_ITS ---
[facility] [place] [id number] Patient Name: SONI PERLA MRN: [id number] date: 1965 Sex: F Assigned Patient Location: CARD Current Patient Location: CARD Accession/Order Number: [id number] Exam Date: 10/04/2024 08:25 Report Date: 10/04/2024 08:26 At the request of: EZIO HAMPTON DO Procedure: XR chest 2V PA AND LATERAL CHEST: CLINICAL HISTORY: Dyspnea On Exertion COMPARISON: None There is no focal parenchymal consolidation, effusion or pneumothorax. The cardiac, hilar and mediastinal silhouettes are within normal limits. There is no vascular congestion. The visualized bony thorax is intact. There is reverse S-shaped gliotic curvature and endplate spurring. There are degenerative changes with evidence of rotator cuff disease at the shoulders and anchor pins at the right humeral head. XR/XR chest 2V IMPRESSION: NO ACUTE CARDIOPULMONARY ABNORMALITY. Impression dictated by: Deidra Craig M.D. 10/04/2024 8:26 AM Dictation Location: [place] [id number] Electronically authenticated by: [id number] Y Date: 10/04/2024 08:26
--- NOTE | 2024-10-05 19:25 | PM.STRESS ---
Stress Test Stress Test Allergies Allergy/AdvReac Type Severity Reaction Status Date / Time No Known Drug Allergies Allergy Verified 02/24/23 19:48 Requesting physician: Jennifer Grimaldo Procedure: Treadmill exercise stress test General Information: Reason for Stress Test: [Dyspnea on exertion] Cardiac History and Risk Factors: [Hypertension, hyperlipidemia, diabetes mellitus, age and gender] Resting 12 - Lead Electrocardiogram: Resting EKG showed normal sinus rhythm, heart rate 74 bpm, poor R progression in V1-V3, no T or ST changes. Resting heart rate 75 bpm and resting blood pressure 136/82 mmHg. The patient was exercised according to standard Lester protocol and he was able to finish 3 minutes and 20 seconds reaching second stage and achieving 5.4 METS and max heart rate of 153 bpm which represents 95% of age-predicted maximum heart rate and peak blood pressure 156/82 mmHg. Exercise was terminated secondary to achievement of target heart rate and fatigue. The patient did not experience any chest, neck, jaw, or arm discomfort however she was short of breath at peak exercise. Patient was monitored up to 6 minutes into recovery phase with heart rate back to 87 bpm and blood pressure to 138/78 mmHg EKG during exercise, at peak exercise showed less than [address] depression which resolved quickly during recovery. No significant arrhythmia noted. Only rare isolated PVCs. Stress Test: Protocol: [Lester] Exercise Capacity: [Reduced] Blood Pressure Response: [Normal] Rhythm: [Sinus, no significant arrhythmia] ST - Response: [No ischemic changes] Patient Response: [Normal] Interpretation: Maximal stress test achieving 95% of age-predicted maximum heart rate Normal heart rate and blood pressure response to exercise Reduced exercise tolerance The stress test is negative for exercise-induced ischemic symptoms, EKG changes, or arrhythmias Song score 3 consistent with moderate cardiac risk Chio Stokes MD [facility]
== END 2024-10-04 07:15 | disposition home or self-care (01) ==
LOC: CARD 07:15
PROVIDERS: PCP Student in an Organized Health Care Education/Training Program; Visit Provider Student in an Organized Health Care Education/Training Program
DX: R06.09 Other forms of dyspnea (principal)
CPT/HCPCS: 71046; 93017

== ENCOUNTER 2024-11-15 10:03 | Outpatient (OUT) | payer OTHER, SELFPAY ==
--- NOTE | 2024-11-15 | MM_ITS ---
Patient Name: SONI PERLA MR#: [id number] : 1965 Exam Date: 11/15/2024 Ordering Doctor: EZIO HAMPTON RADIOLOGY REPORT PROCEDURE: MM TOMOSYNTHESIS SCREENING BI COMPARISON: MM TOMOSYNTHESIS SCREENING BI, 10/26/2023. MM TOMOSYNTHESIS SCREENING BI, 10/20/2022. MG MAMM SCREEN 3D AMELIA CAD, 10/15/2021. MG MAMM AMELIA SCRN W CAD DIG, 09/26/2008. INDICATIONS: SCREENING FOR MALIGNANCY OF BREASTS Calculator Name NCI Breast Cancer Risk Assessment Tool 5 Year Breast Cancer Risk 1.00% Lifetime Breast Cancer Risk 5.30% Personal Breast Cancer No Personal Ovarian Cancer No Treatments None Family Cancers None LOCATION: [facility] BREAST COMPOSITION: There are scattered areas of fibroglandular density. FINDINGS: DIAGNOSTIC CATEGORY 1--NEGATIVE. RIGHT BREAST: No significant suspicious finding. LEFT BREAST: No significant suspicious finding. RECOMMENDATIONS: ROUTINE MAMMOGRAM AND CLINICAL EVALUATION IN 12 MONTHS. PLEASE NOTE: A NORMAL MAMMOGRAM DOES NOT EXCLUDE THE POSSIBILITY OF BREAST CANCER. A CLINICALLY SUSPICIOUS PALPABLE LUMP SHOULD BE BIOPSIED. Dictated by: Regulo Agustin DO on 11/15/2024 at 16:10 Approved by: Regulo Agustin DO on 11/15/2024 at 16:11
[2024-11-15 08:58] LABS: Hemoglobin 12.1 g/dL (12.0-16.0)
[2024-11-15] MEDS: ALBUTEROL SULFATE 2.5 MG/3 ML VIAL NEB IH (09:39)
== END 2024-11-15 10:04 | disposition home or self-care (01) ==
LOC: CARD 10:03
PROVIDERS: PCP Student in an Organized Health Care Education/Training Program; Visit Provider Student in an Organized Health Care Education/Training Program
DX: R06.09 Other forms of dyspnea (principal); Z12.31 Encounter for screening mammogram for malignant neoplasm of breast
CPT/HCPCS: 36415; 77063; 77067; 85018; 94060; 94726; 94729